=== PATIENT | male | born 1945 | race Caucasian/White ===

== ENCOUNTER 2023-01-22 16:25 | Inpatient (IN) ==
--- NOTE | 2023-01-22 16:35 | ED Triage Note ---
Date of Service January 22, 2023 History of Present Illness This patient was briefly evaluated while in triage. An abbreviated physical exam was performed. This patient is a 77-year-old Male who presents to the ED for evaluation of weakness and confusion. The patient was shopping at [employer] around 2 PM and lost his balance. reports that she was following him and he started to shuffle his feet. He then started to speed up and slow down again. When she put him in a car to take him home, he was fiddling with his seatbelt and his pockets. When asked what he was doing, he was stating "just drive". When he got home, he got out of the vehicle, started to stumble and slammed into the side of his pickup on his back. When he got into the house, there was urinary incontinence. Patient was just seen at noontime by his PCP for a sinus infection. Physical Exam CONSTITUTIONAL: Healthy and well nourished. Alert and oriented X 3. Patient is sitting in a wheelchair in triage HEENT: No scleral icterus or conjunctival injection/pallor. NECK: Full active range of motion without discomfort. LYMPHATICS: No cervical chain adenopathy. RESPIRATORY: Clear to auscultation bilaterally with no wheezing, crackles, rhonchi or stridor. CARDIOVASCULAR: Regular rate and rhythm with no murmurs, rubs or gallops. MUSCULOSKELETAL: Full range of motion of all joints without discomfort. INTEGUMENTARY: No rash or other significant dermatologic conditions noted. HEMATOLOGIC: No ecchymosis or petechiae. PSYCHIATRIC: Positive affect. NEUROLOGIC: No focal neurologic deficits noted. Initial orders for labs and / or imaging were placed and patient was placed in the waiting area until a bed is available. Please see further documentation for the full ED course.
--- NOTE | 2023-01-22 16:56 | Emergency Department Note ---
Impression & Plan Acute alteration in mental status, New onset left bundle branch block (LBBB), Elevated troponin I level ED Provider Note NAME: OXANA ENAMORADO AGE: 77 SEX: M : 1945 ARRIVES VIA: Walk-In INFORMANT: Patient, the patient's significant other ED PROVIDER(S): Milton Wells DO CHIEF COMPLAINT: Weakness HPI: The patient is a 77-year-old male who presented to the emergency department with his significant other for an evaluation of generalized weakness. The patient states that he was with his significant other shopping locally. His then starts to give part of the history and states that he appeared to be having some difficulty ambulating. He appeared to be very off balance. He was shuffling his gait. She then allowed him to start pushing the cart which allowed the patient to start to do better with walking. Then when they left the shopping area and got into the car the patient appeared to be having difficulty latching his seatbelt. The patient did not lose consciousness. He has no difficulty with speaking. He denies having any headache or chest pain. He has been dealing with an upper respiratory tract infection which he describes as a "sinus infection". He has been coughing. He just saw his family doctor for the symptoms. ROS: See above HPI for pertinent positives & negatives. A total of 10 systems reviewed and were otherwise negative. PAST MEDICAL HISTORY: See Below PAST SURGICAL HISTORY: See Below FAMILY HISTORY: See Below SOCIAL HISTORY: See Below HOME MEDICATIONS: See Below ALLERGIES: See Below VITALS: See Below PHYSICAL EXAMINATION: GENERAL: Patient is awake alert in no acute distress patient is resting comfortably and showing no signs of anxiety EYES: The conjunctivae are clear. The pupils are round and reactive. EARS, NOSE, MOUTH AND THROAT: The nose is without any evidence of any deformity. Mucous membranes are moist. Tongue is midline. NECK: The neck is nontender and supple. RESPIRATORY: Normal respiratory effort was noted. There were diminished breath sounds in the right lung field. Scattered rales are noted to the right lung field. There is no tachypnea or conversational dyspnea. CARDIOVASCULAR: Regular rate and rhythm noted there no murmurs rubs or gallops normal S1 normal S2. GASTROINTESTINAL: The abdomen is soft. Abdomen is nontender. MUSCULOSKELETAL/EXTREMITIES: There is no evidence of gross deformity full range of motion is noted in the hips and shoulders. SKIN: There is no obvious evidence of any rash. There is no significant pedal edema. Skin was warm and dry. NEUROLOGIC: Patient is awake alert and oriented x3. Speech was clear. There is no facial droop. Patient is able to hold each leg off the bed for greater than 5 seconds. There is no drift in the upper extremities. MEDICAL DECISION MAKING: The patient is a 77-year-old male who presented to the emergency department for an evaluation of altered mental status. The patient presented with his significant other. He had no focal neurologic deficits but he did appear to have some confusion at times especially pertaining to the episode earlier in the day. He also was found to have an EKG that showed a new left bundle branch block. Troponin was slightly elevated. I discussed the patient's laboratory and radiographic studies with him. He was treated with a baby aspirin in the emergency department. He was reevaluated multiple times. I discussed patient's condition with the on-call [facility]. They have agreed to evaluate the patient in the emergency department for further management and disposition Triage Nursing notes reviewed. Prior medical records reviewed Vital Signs: reviewed and remarkable for no significant abnormalities Differential diagnosis: Infection, dehydration, metabolic abnormality, hypo/hyperglycemia, electrolyte disturbance, anemia, hypoxia, cardiac sources, intracerebral event, toxicologic, neurologic, as well as other pathologies. ER treatment provided: See below Diagnostics interpreted by me: ECG: EKG was obtained in the emergency department. My interpretation is normal sinus rhythm at 95 bpm. A left bundle-branch block pattern was noted. There were no PVCs. Nonspecific ST segment abnormalities were noted. This was compared to a tracing from July 15, 2016. The left bundle branch block is new compared to the previous tracing. Cardiac Monitoring: An order was placed for continuous cardiac monitoring. The monitor shows a rate of 66 bpm with sinus bradycardia. Laboratory studies: As stated above and show below. Imaging studies: See below. Radiographic imaging was reviewed by myself Consultation(s): I discussed this case with Dr. Mcallister who is on-call for the [facility] group. 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 History of COVID-19 2020- FEVER, SORE THROAT, NO HOSPITALIZATION, NO CURRENT ISSUES Hx of dislocation of hip X 2 --LEFT Hx of steroid therapy recent hx of steroid injections thumb, knees, and back Hyperlipidemia Hypertension Surgical History H/O nasal septoplasty History of bunionectomy X 4 History of hip surgery LEFT, AFTER 2 HIP DISLOCATIONS, HAD TO BE "LOCKED" INTO PLACE Hx of colonoscopy S/P total hip arthroplasty B/L Social History Smoking Status: Former smoker Second Hand Exposure: Yes; Do You Dip or Chew Tobacco: No; Tobacco Cessation Education Requested by Patient: No Hx Alcohol Use: No Hx Substance Use: No Preferred Language: Khmer Communication Ability: Effective Knot Borer Required: No Beliefs That Will Affect Care: None Current Living Situation: Spouse Other Information That Helps Us Care for You: Yes (previously received steroid injections) Feels Safe at Home: Yes Safety Concerns: Feels Safe At This Time Assistive Devices: Cane, Hearing Aid - Bilateral, Hearing Aid - Left, Hearing Aid - Right and Walker Allergies Allergies Allergy/AdvReac Type Severity Reaction Status Date / Time No Known Allergies Allergy Unknown Verified 01/22/23 21:23 Home Meds Home Medications Medication Instructions Recorded Confirmed atorvastatin 20 mg tablet 20 mg PO QPM 04/06/21 01/22/23 amoxicillin 500 mg capsule 500 mg PO UD 09/02/22 01/22/23 multivitamin 1 tab PO QAM 09/02/22 01/22/23 doxycycline hyclate 100 mg capsule 100 mg PO BID 01/22/23 01/22/23 fluticasone propionate 50 2 spray intranasal DAILY 01/22/23 01/22/23 mcg/actuation nasal spray,suspension (Flonase Allergy Relief) hydrochlorothiazide 25 mg tablet 25 mg PO DAILY 01/22/23 01/22/23 potassium gluconate 595 mg (99 mg) 595 mg PO DAILY 01/22/23 01/22/23 tablet prednisone 20 mg tablet 40 mg PO DAILY 01/22/23 01/22/23 trazodone 150 mg tablet 150 mg PO HS 01/22/23 01/22/23 triamcinolone acetonide 0.1 % 1 applic topical BID PRN flare ups 01/22/2301/22 lotion Results & Data (ED) Vital Signs Vital Signs - 24 hr 01/22/23 16:28 01/22/23 16:56 01/22/23 16:56 Temperature 36.6 C Temperature Source Temporal Artery Scan Pulse Rate 97 H 90 Pulse Rate [Right Apical] 90 Pulse Rate from SpO2 Sensor Respiratory Rate 20 18 18 Respiratory Effort / Characteristics Non-Labored Non-Labored Spontaneous Respiratory Depth Normal Normal Respiratory Pattern Regular Blood Pressure 145/62 H Blood Pressure [Right Arm] 143/65 H Blood Pressure Mean 89 Blood Pressure Mean [Right Arm] 91 Pulse Oximetry 92 92 92 Oxygen Delivery Method Room Air Room Air Room Air Sepsis Recent Fever Within 48 Hours No Sepsis New/Unexplained Change in Mental Status N/A Sepsis Action Taken by Nursing No Action Required 01/22/23 17:08 01/22/23 17:30 01/22/23 18:37 Temperature Temperature Source Pulse Rate 87 82 77 Pulse Rate [Right Apical] Pulse Rate from SpO2 Sensor 82 Respiratory Rate 26 H 16 Respiratory Effort / Characteristics Respiratory Depth Respiratory Pattern Blood Pressure 131/59 L 120/57 L Blood Pressure [Right Arm] Blood Pressure Mean 83 78 Blood Pressure Mean [Right Arm] Pulse Oximetry 91 94 Oxygen Delivery Method Room Air Room Air Sepsis Recent Fever Within 48 Hours Sepsis New/Unexplained Change in Mental Status Sepsis Action Taken by Longterm Medications Current Medication List: was personally reviewed by me Laboratory Data Attestation: I reviewed the patient's lab results. 01/22/23 16:41 01/22/23 16:41 Lab Results 01/22/23 01/22/23 01/22/23 Range/Units 16:41 16:41 16:41 WBC 9.44 (4.8-10.8) K/ul RBC 4.40 L (4.70-6.10) M/uL Hgb 13.5 L (14.0-18.0) g/dl Hct 38.4 L (42.0-52.0) % MCV 87.3 (80.0-100.0) fL MCH 30.7 (25.0-34.0) pg MCHC 35.2 (32.0-36.0) g/dL RDW Std Deviation 39.6 (36.4-46.3) fL RDW Coeff of Thomas 12.3 (11.5-14.5) % Plt Count 217 (130-400) K/uL MPV 8.8 L (9.4-12.4) fL Immature Gran % (Auto) 0.3 % Neut % (Auto) 86.4 % Lymph % (Auto) 3.6 % [place] % (Auto) 9.5 % Eos % (Auto) 0.1 % Baso % (Auto) 0.1 % Neut # (Auto) 8.15 H (1.40-6.50) K/uL Lymph # (Auto) 0.34 L (1.2-3.4) K/uL [place] # (Auto) 0.90 H (0.11-0.59) K/uL Eos # (Auto) 0.01 (0-0.50) K/uL Baso # (Auto) 0.01 (0-0.2) K/uL Immature Gran # (Auto) 0.03 (0.01-0.20) K/uL Sodium 133 L (136-145) mmol/L Potassium 3.4 L (3.5-5.1) mmol/L Chloride 99 (98-107) mmol/L Carbon Dioxide 26 (21-32) mmol/L Anion Gap 8 (3-11) BUN 21 (6-23) mg/dl Creatinine 0.75 (0.6-1.4) mg/dl Est Cr Clr Drug Dosing 93.4 ml/min Est GFR ( Amer) 104.0 ml/min Est GFR (Non-Af Amer) 89.7 ml/min BUN/Creatinine Ratio 28.0 H (10-20) Glucose 92 (70-99(Fasting)) mg/dl Calcium 9.2 (8.6-10.3) mg/dl Total Bilirubin 1.1 H (0.2-1.0) mg/dl AST 26 (13-39) U/L ALT 20 (7-52) U/L Alkaline Phosphatase 66 (34-104) U/L Troponin I High Sens 20.8 H (0-20) pg/ml Total Protein 7.3 (6.0-8.3) gm/dl Albumin 4.5 (3.4-5.0) gm/dl Globulin 2.8 (2.5-4.0) gm/dl Albumin/Globulin Ratio 1.6 (0.9-2) TSH 1.812 (0.300-4.500) uIu/ml Urine Color Urine Appearance (Clear) Urine pH (4.5-7.5) Ur Specific [place] (1.000-1.030) Urine Protein (Negative) Urine Glucose (UA) (Negative) Urine Ketones (Negative) Urine Blood (Negative) Urine Nitrite (Negative) Urine Bilirubin (Negative) Urine Urobilinogen (Negative) Ur Leukocyte Esterase (Negative) Urine WBC (Auto) (0-5) /hpf Urine RBC (Auto) (0-4) /hpf U Hyaline Cast (Auto) (0-5) /lpf U Epithel Cells (Auto) (0-5) /lpf Urine Bacteria (Auto) (Negative) Urine Opiates Screen (Neg) Ur Methadone, Qual (Neg) Urine Barbiturates (Neg) Ur Phencyclidine (PCP) (Neg) U Amphetamin/Meth Scrn (Neg) MDMA (Ecstasy) Screen (Neg) U Benzodiazepines Scrn (Neg) Ur Cocaine Metabolite (Neg) U Marijuana (THC) Screen (Neg) Ethyl Alcohol mg/dL (<10.0) mg/dl SARS-CoV-2 (PCR) (Negative) Influenza Type A (PCR) (Neg) Influenza Type B (PCR) (Neg) RSV (RT-PCR) (Neg) 01/22/23 01/22/23 01/22/23 Range/Units 16:41 17:15 18:37 WBC (4.8-10.8) K/ul RBC (4.70-6.10) M/uL Hgb (14.0-18.0) g/dl Hct (42.0-52.0) % MCV (80.0-100.0) fL MCH (25.0-34.0) pg MCHC (32.0-36.0) g/dL RDW Std Deviation (36.4-46.3) fL RDW Coeff of Thomas (11.5-14.5) % Plt Count (130-400) K/uL MPV (9.4-12.4) fL Immature Gran % (Auto) % Neut % (Auto) % Lymph % (Auto) % [place] % (Auto) % Eos % (Auto) % Baso % (Auto) % Neut # (Auto) (1.40-6.50) K/uL Lymph # (Auto) (1.2-3.4) K/uL [place] # (Auto) (0.11-0.59) K/uL Eos # (Auto) (0-0.50) K/uL Baso # (Auto) (0-0.2) K/uL Immature Gran # (Auto) (0.01-0.20) K/uL Sodium (136-145) mmol/L Potassium (3.5-5.1) mmol/L Chloride (98-107) mmol/L Carbon Dioxide (21-32) mmol/L Anion Gap (3-11) BUN (6-23) mg/dl Creatinine (0.6-1.4) mg/dl Est Cr Clr Drug Dosing ml/min Est GFR ( Amer) ml/min Est GFR (Non-Af Amer) ml/min BUN/Creatinine Ratio (10-20) Glucose (70-99(Fasting)) mg/dl Calcium (8.6-10.3) mg/dl Total Bilirubin (0.2-1.0) mg/dl AST (13-39) U/L ALT (7-52) U/L Alkaline Phosphatase (34-104) U/L Troponin I High Sens (0-20) pg/ml Total Protein (6.0-8.3) gm/dl Albumin (3.4-5.0) gm/dl Globulin (2.5-4.0) gm/dl Albumin/Globulin Ratio (0.9-2) TSH (0.300-4.500) uIu/ml Urine Color Yellow Urine Appearance Clear (Clear) Urine pH 5.0 (4.5-7.5) Ur Specific [place] 1.017 (1.000-1.030) Urine Protein Negative (Negative) Urine Glucose (UA) Negative (Negative) Urine Ketones 1+ H (Negative) Urine Blood 1+ H (Negative) Urine Nitrite Negative (Negative) Urine Bilirubin Negative (Negative) Urine Urobilinogen Negative (Negative) Ur Leukocyte Esterase Negative (Negative) Urine WBC (Auto) 1-5 (0-5) /hpf Urine RBC (Auto) 5-10 H (0-4) /hpf U Hyaline Cast (Auto) 1-5 (0-5) /lpf U Epithel Cells (Auto) 0-5 (0-5) /lpf Urine Bacteria (Auto) Negative (Negative) Urine Opiates Screen (Neg) Ur Methadone, Qual (Neg) Urine Barbiturates (Neg) Ur Phencyclidine (PCP) (Neg) U Amphetamin/Meth Scrn (Neg) MDMA (Ecstasy) Screen (Neg) U Benzodiazepines Scrn (Neg) Ur Cocaine Metabolite (Neg) U Marijuana (THC) Screen (Neg) Ethyl Alcohol mg/dL 10.7 H (<10.0) mg/dl SARS-CoV-2 (PCR) NEGATIVE (Negative) Influenza Type A (PCR) Negative (Neg) Influenza Type B (PCR) Negative (Neg) RSV (RT-PCR) Negative (Neg) 01/22/23 Range/Units 18:37 WBC (4.8-10.8) K/ul RBC (4.70-6.10) M/uL Hgb (14.0-18.0) g/dl Hct (42.0-52.0) % MCV (80.0-100.0) fL MCH (25.0-34.0) pg MCHC (32.0-36.0) g/dL RDW Std Deviation (36.4-46.3) fL RDW Coeff of Thomas (11.5-14.5) % Plt Count (130-400) K/uL MPV (9.4-12.4) fL Immature Gran % (Auto) % Neut % (Auto) % Lymph % (Auto) % [place] % (Auto) % Eos % (Auto) % Baso % (Auto) % Neut # (Auto) (1.40-6.50) K/uL Lymph # (Auto) (1.2-3.4) K/uL [place] # (Auto) (0.11-0.59) K/uL Eos # (Auto) (0-0.50) K/uL Baso # (Auto) (0-0.2) K/uL Immature Gran # (Auto) (0.01-0.20) K/uL Sodium (136-145) mmol/L Potassium (3.5-5.1) mmol/L Chloride (98-107) mmol/L Carbon Dioxide (21-32) mmol/L Anion Gap (3-11) BUN (6-23) mg/dl Creatinine (0.6-1.4) mg/dl Est Cr Clr Drug Dosing ml/min Est GFR ( Amer) ml/min Est GFR (Non-Af Amer) ml/min BUN/Creatinine Ratio (10-20) Glucose (70-99(Fasting)) mg/dl Calcium (8.6-10.3) mg/dl Total Bilirubin (0.2-1.0) mg/dl AST (13-39) U/L ALT (7-52) U/L Alkaline Phosphatase (34-104) U/L Troponin I High Sens (0-20) pg/ml Total Protein (6.0-8.3) gm/dl Albumin (3.4-5.0) gm/dl Globulin (2.5-4.0) gm/dl Albumin/Globulin Ratio (0.9-2) TSH (0.300-4.500) uIu/ml Urine Color Urine Appearance (Clear) Urine pH (4.5-7.5) Ur Specific [place] (1.000-1.030) Urine Protein (Negative) Urine Glucose (UA) (Negative) Urine Ketones (Negative) Urine Blood (Negative) Urine Nitrite (Negative) Urine Bilirubin (Negative) Urine Urobilinogen (Negative) Ur Leukocyte Esterase (Negative) Urine WBC (Auto) (0-5) /hpf Urine RBC (Auto) (0-4) /hpf U Hyaline Cast (Auto) (0-5) /lpf U Epithel Cells (Auto) (0-5) /lpf Urine Bacteria (Auto) (Negative) Urine Opiates Screen Neg (Neg) Ur Methadone, Qual Neg (Neg) Urine Barbiturates Neg (Neg) Ur Phencyclidine (PCP) Neg (Neg) U Amphetamin/Meth Scrn Neg (Neg) MDMA (Ecstasy) Screen Pos H (Neg) U Benzodiazepines Scrn Neg (Neg) Ur Cocaine Metabolite Neg (Neg) U Marijuana (THC) Screen Neg (Neg) Ethyl Alcohol mg/dL (<10.0) mg/dl SARS-CoV-2 (PCR) (Negative) Influenza Type A (PCR) (Neg) Influenza Type B (PCR) (Neg) RSV (RT-PCR) (Neg) Administered Medications Discontinued Medications Aspirin (Aspirin Chew 324 Mg) 324 mg PO NOW STA Stop: 01/22/23 19:17 Last Admin: 01/22/23 19:48 Dose: 324 mg Documented By: [facility] Gadobutrol (Gadobutrol 65ml Vial) 9.1 ml IV ONCE ONE Stop: 01/22/23 22:55 Last Admin: 01/22/23 22:54 Dose: 9.1 ml Documented By: KRYSTAL Ioversol (Optiray 320 500ml) 120 ml IV ONCE ONE Stop: 01/22/23 20:43 Last Admin: 01/22/23 20:42 Dose: 120 ml Documented By: EDK Imaging Data Attestation: I personally reviewed and interpreted this imaging study as follows: My Impression: 1 view chest x-ray was obtained in the emergency department. My interpretation is no definite infiltrate, no free air, final report below. Radiologist's Impression: Chest X-Ray 01/22/23 16:35 XR chest 1V portable CLINICAL HISTORY: weakness TECHNIQUE: Single frontal radiograph of the chest was obtained. Comparison: Comparison is made to chest radiograph 11/26/2013 FINDINGS: No lines and tubes are seen. Cardiomegaly is noted. The aortic arch is calcified. The lungs are clear. No evidence of pleural effusion or pneumothorax. IMPRESSION: No acute chest disease. ACT 112: Negative or not required by law. Electronically signed by: Jordan Johnston M.D. 01/22/2023 5:[address] 01/22/23 16:35 CT head/brain wo con CLINICAL HISTORY: AMS Technique: Contiguous axial CT images of the head were acquired from the base of the skull to the vertex without intravenous contrast administration. Images were viewed in brain, subdural and bone windows. Automated dose lowering techniques and/or adjustment according to patient size were utilized for this exam. Comparison: None available at the time of this dictation. Findings: The ventricles, basal cisterns, and cerebral sulci are normal. There is no acute intracranial hemorrhage or evidence of acute territorial infarction. Neither mass effect, shift of the midline structures, nor abnormal extra-axial fluid co llections are shown. Incidental note is made of cavum septum pellucidum. Sinus disease is partially seen throughout the paranasal sinuses. The orbits appear normal. There are no acute fractures of the calvaria or scalp swelling. Impression: No acute intracranial hemorrhage, no evidence of acute territorial infarction or other acute intracranial disease process. Sinus disease is seen. ACT 112: Negative or not required by law. Electronically signed by: Jordan Johnston M.D. 01/22/2023 6:15 PM Discharge Plan Visit Data Chief Complaint: Neuro Symptoms/Deficit Stated Complaint: CONFUSION,LOST BALANCE,WET HIMSELF ED Provider: Milton Wells Discharge Problem: Acute alteration in mental status, New onset left bundle branch block (LBBB), Elevated troponin I level Patient Disposition: Admitted As Inpatient Discharge Instructions Interventions: ED Discharge Assessment Last Done: 01/22/23 21:21
[2023-01-22 17:18] LABS: Basophils # (auto) 0.01 K/uL (0-0.2); Basophils % (auto) 0.1 %; Eosinophils # (auto) 0.01 K/uL (0-0.50); Eosinophils % (auto) 0.1 %; Hematocrit (blood only) 38.4 % (42.0-52.0); Hemoglobin 13.5 g/dl (14.0-18.0); Immature Granulocytes # (auto) 0.03 K/uL (0.01-0.20); Immature Granulocytes % (auto) 0.3 %; Lymphocytes # (auto) 0.34 K/uL (1.2-3.4); Lymphocytes % (auto) 3.6 %; Mean Corpuscular Hemoglobin 30.7 pg (25.0-34.0); Mean Corpuscular Hgb Conc 35.2 g/dL (32.0-36.0); Mean Corpuscular Volume 87.3 fL (80.0-100.0); Mean Platelet Volume 8.8 fL (9.4-12.4); Monocytes % (auto) 9.5 %; Neutrophils # (auto) 8.15 K/uL (1.40-6.50); Neutrophils % (auto) 86.4 %; Platelet Count 217 K/uL (130-400); RDW Coefficient of Variation 12.3 % (11.5-14.5); RDW Standard Deviation 39.6 fL (36.4-46.3); White Blood Count 9.44 K/ul (4.8-10.8)
--- NOTE | 2023-01-22 17:24 | XRay Report ---
XR chest 1V portable CLINICAL HISTORY: weakness TECHNIQUE: Single frontal radiograph of the chest was obtained. Comparison: Comparison is made to chest radiograph 11/26/2013 FINDINGS: No lines and tubes are seen. Cardiomegaly is noted. The aortic arch is calcified. The lungs are clear . No evidence of pleural effusion or pneumothorax. IMPRESSION: No acute chest disease. ACT 112: Negative or not required by law. Electronically signed by: Jordan Johnston M.D. 01/22/2023 5:23 PM
[2023-01-22 17:30] LABS: Albumin Globulin Ratio 1.6 (0.9-2); Albumin Level 4.5 gm/dl (3.4-5.0); Bilirubin,Total 1.1 mg/dl (0.2-1.0); Calcium 9.2 mg/dl (8.6-10.3); Creatinine Clr Calc Pharmacy 93.4 ml/min; Est GFR (Non-African American) 89.7 ml/min; Globulin 2.8 gm/dl (2.5-4.0); Potassium 3.4 mmol/L (3.5-5.1); Total Protein 7.3 gm/dl (6.0-8.3)
[2023-01-22 18:03] LABS: Influenza A virus by PCR Negative (Neg); Influenza B virus by PCR Negative (Neg); RSV by PCR Negative (Neg); SARS CoV2 RNA(COVID-19) Ceph NEGATIVE (Negative)
[2023-01-22 18:17] LABS: Troponin I High Sensitivity 20.8 pg/ml (0-20)
--- NOTE | 2023-01-22 18:17 | CT Scan Report ---
CT head/brain wo con CLINICAL HISTORY: AMS Technique: Contiguous axial CT images of the head were acquired from the base of the skull to the evie stewart without intravenous contrast administration. Images were viewed in brain, subdural and bone [facility]. Automated dose lowering techniques and/or adjustment according to patient size were utilized for this exam. Comparison: None available at the time of this dictation. Findings: The ventricles, basal cisterns, and cerebral sulci are normal. There is no acute intracranial hemorrh age or evidence of acute territorial infarction. Neither mass effect, shift of the midline structures , nor abnormal extra-axial fluid collections are shown. Incidental note is made of cavum septum rome ucidum. Sinus disease is partially seen throughout the paranasal sinuses. The orbits appear normal. There ar e no acute fractures of the calvaria or scalp swelling. Impression: No acute intracranial hemorrhage, no evidence of acute territorial infarction or other acute intracra nial disease process. Sinus disease is seen. ACT 112: Negative or not required by law. Electronically signed by: Jordan Johnston M.D. 01/22/2023 6:15 PM
[2023-01-22 18:52] LABS: Appearance Urine Clear (Clear); Bacteria Urine Automated Negative (Negative); Bilirubin Urine Negative (Negative); Blood Urine 1+ (Negative); Color Urine Yellow; Epithelial Cell Urine Auto 0-5 /lpf (0-5); Glucose Urine UA Negative (Negative); Ketones Urine 1+ (Negative); Leukocyte Esterase Urine Negative (Negative); Nitrite Urine Negative (Negative); Protein Urine Negative (Negative); Specific Gravity Urine 1.017 (1.000-1.030); Urobilinogen Urine Negative (Negative)
[2023-01-22] MEDS ORDERED: ASPIRIN CHEW 324 MG PO STA (19:16)
[2023-01-22 19:20] LABS: Amphetamines+Metham, Urine Neg (Neg); Barbiturates, Urine Neg (Neg); Benzodiazepine, Urine Neg (Neg); Cocaine, Urine Neg (Neg); MDMA (Ecstacy), Urine Pos (Neg); Methadone, Urine Neg (Neg); Opiate, Urine Neg (Neg); Phencyclidine, Urine Neg (Neg)
[2023-01-22] MEDS ORDERED: OPTIRAY 320 500ml IV ONE (20:42)
--- NOTE | 2023-01-22 21:27 | CT Scan Report ---
CT angio neck with con, CT angio head w con CLINICAL HISTORY: stroke like symptoms TECHNIQUE: CT angiography of the head and neck was performed following intravenous administration of iodinated contrast. Coronal and sagittal MIPS were obtained from the axial data set and were submitt ed for review. Automated dose lowering techniques and/or adjustment according to patient size were u tilized for this examination. All measurements were calculated based on NASCET criteria. CT DOSE: 533.89 mGy.cm Comparison: Comparison is made to CT head 01/22/2023 FINDINGS: Lungs and soft tissues are unremarkable. CTA Neck: A 3 vessel aortic arch is shown. There is no significant atherosclerotic plaque in the aor tic arch or the origins of the innominate, left common carotid, and left subclavian arteries. The co mmon carotid, external carotid, cervical segments of the internal carotid arteries, and the cervical segments of the vertebral arteries are patent without hemodynamically significant stenosis. The left vertebral artery is dominant. CTA Head: The anterior and posterior cerebral circulations are patent. origin of the bilateral posterior cerebral arteries noted. Bilateral extensive sinus disease is noted. IMPRESSION: 1. No occlusion, hemodynamically significant stenosis, or dissection in the major cervical arteries. 2. No occlusion, hemodynamically significant stenosis, aneurysm, dissection, or arteriovenous malfor mation in the major intracranial arteries. 3. Sinus disease. Assessment of stenosis of the internal carotid arteries is based on NASCET criteria. ACT 112: Negative or not required by law. Electronically signed by: Jordan Johnston M.D. 01/22/2023 9:24 PM
[2023-01-22] MEDS ORDERED: ATORVASTATIN 20 MG TAB PO SCH (21:59)
[2023-01-22] MEDS ORDERED: NITROGLYCERIN SL 0.4 MG/TAB TAB SL PRN (21:59)
[2023-01-22] MEDS ORDERED: POLYETHYLENE (MIRALAX) 17 GM PACK PO PRN (21:59)
[2023-01-22] MEDS ORDERED: ACETAMINOPHEN 325 MG TAB PO PRN (21:59)
[2023-01-22] MEDS ORDERED: PHARMACIST DISCHARGE MED REC CONSULT PRN (21:59)
--- NOTE | 2023-01-22 22:41 | History and Physical Report ---
DATE OF ADMISSION: 01/22/2023. CHIEF COMPLAINT: Imbalance and confusion. HISTORY OF PRESENT ILLNESS: A 77-year-old male with past medical history significant for hyperlipidemia, deviated nasal septum, hypertension, history of BPH, sacroiliitis, status post nasal surgery, history of COVID, presents with imbalance and confusion. Around 1 o'clock and 2 p.m. today the patient with went to [facility]. When they walked in, the noticed that he is limping more than his usual. He has hip surgeries and he generally has some gait issues, but it was more than his usual, and when they got in the car, he seemed to be somewhat confused, could not put his seatbelt on and when they got out of car, he seemed to lose balance and fall back onto the car and also noticed that he was incontinent of urine when they went to the house. The patient says he has frequent micturition going on for some time and he felt that he could not wait until he goes to bathroom .. Speech is okay. thinks his confusion is mostly resolved, but he still has some gait issues. The patient is resting comfortably, hemodynamically stable. Speech is clear, could give his history: He was also having ongoing sinus issues. He had nasal surgery about a year ago and has chronic sinus issues. Since few weeks he is having nasal discharge and with cough and saw the family doctor today and was prescribed prednisone and doxycycline, took doxycycline, but not took the prednisone yet. Denies any headache. He has chronic neck pain, chronic back pain. Denies any chest pain. He has chronic knee pains. He says he is supposed to get a shot to his back .. Appetite is okay. Denies any chest pain, no shortness of breath, no nausea, no abdominal pain. Normal bowel movements. No blood in the stool or black stools. No hematuria, no burning micturitions. No fevers. He does night shifts and sleeps in the afternoon and takes trazodone prior to going to sleep. He says never took alcohol, but his alcohol level was slightly high in the ER. ALLERGIES: No known drug allergies. PAST MEDICAL HISTORY: As mentioned above. PAST SURGICAL HISTORY: Right foot bunion surgery, colonoscopy with biopsy, dental surgery, bilateral knee arthroscopy, left hip reconstructive surgery of dislocation, submucosal resection of inferior turbinate, bilateral; right eye cataract surgery, right inguinal hernia repair, bilateral hip replacements, vasectomy. MEDICATIONS: The patient is on amoxicillin prior to dental procedures, atorvastatin 20 mg daily, doxycycline 100 mg p.o. daily for 14 days starting today, hydrochlorothiazide 25 mg p.o. daily, multivitamin 1 tablet p.o. daily, prednisone 40 mg daily for 5 days, trazodone 150 mg p.o. at bedtime, potassium gluconate 595 mg p.o. daily. FAMILY HISTORY: Significant for father had cancer, mother had CHF. SOCIAL HISTORY: Smoked 1/2 pack a day for one year, quit in 1967. Denies any alcohol use. Denies any drug use. REVIEW OF SYSTEMS: As per HPI. Rest of review of systems is negative. PHYSICAL EXAMINATION: GENERAL: The patient is of moderate build, not in acute distress. VITAL SIGNS: Temperature 36.6, pulse 77, respiratory rate 16, blood pressure 120/57, oxygen 94% on room air. HEENT: Pupils equal, round and reactive to light. Extraocular muscles intact. Oral mucosa moist. NECK: No JVD. No neck masses. CARDIOVASCULAR: S1 and S2 heard. Regular rate and rhythm. No murmur, no gallop. RESPIRATORY SYSTEM: Normal AP diameter. No accessory muscle use. No wheezing or crackles. ABDOMEN: Soft, bowel sounds present, nontender, no distention. CENTRAL NERVOUS SYSTEM: Alert and oriented. Speech is clear. No facial droop. Tongue is midline. Can close his eyes tight and raise his brows. Power 5/5 in upper extremities, 4-5/5 in lower extremities. Can lift his lower extremity and hold. No pronator drift. Coordination of movements normal. Sensation is intact. Position sense intact. EXTREMITIES: No edema, no erythema. LABORATORY DATA: WBC is 9.4, hemoglobin 13.5, hematocrit 38.4, platelets 217. Sodium 133, potassium 3.4, chloride 99, CO2 of 26, BUN 21, creatinine 0.7, serum glucose 92, calcium 9.2, total bilirubin 1.1, AST 26, ALT 20, alkaline phosphatase 60. Troponin I high sensitivity 20.8. TSH 1.8. Urinalysis, +1 ketones, +1 blood, bacteria negative. Urine drug screen positive for MDMA screen, ethyl alcohol 10.7. SARS-CoV-2 PCR negative. Influenza A and B PCR negative. RSV PCR negative. DIAGNOSTIC DATA: CT of the head, no acute findings. Chest x-ray, no acute disease. EKG: Normal sinus rhythm at a rate 95. Nonspecific intraventricular conduction delay, nonspecific ST abnormalities. QTc of 490. ASSESSMENT AND PLAN: This is a 77-year-old male presents with confusion and imbalance. 1. Confusion and imbalance. Confusion has improved. The patient's drug screen is positive for MDMA screen, awaiting confirmation.. Denies any drug use. Denies any alcohol use. Initial workup, CT of the head is okay.Received aspirin. We will do a full stroke workup with CTA of the head and neck, MRI scan, echo, and consult neurology in the a.m. PT/OT. Monitor in the tele floor. 2. Abnormal EKG. Follow echocardiogram. Mild elevation of troponin most likely demand ischemia. Follow serial enzymes, echocardiogram. Consult cardiology in the a.m. for further recommendations. 3. History of hyperlipidemia. On statin. Follow lipid profile as per stroke protocol. 4. History of hypertension. Continue hydrochlorothiazide. We will monitor the blood pressure. 5. Sinus disease. Saw PCP today and prescribed doxycycline and prednisone. We will continue doxycycline, hold prednisone for now. 6. Deep venous thrombosis prophylaxis. SCDs for now. DISPOSITION: Admit to tele floor. PT/OT. Social service to help with discharge planning. Level 1 full code. Job ID: [id number] MTDD
[2023-01-22] MEDS ORDERED: GADOBUTROL 65ML VIAL IV ONE (22:54)
[2023-01-22] MEDS: SODIUM CHLORIDE 0.9% 1000ML 1,000 ML IV SCH (23:25)
[2023-01-22] MEDS: DOXYCYCLINE HYCLATE 100 MG CAP PO SCH (23:26)
--- NOTE | 2023-01-22 23:28 | Magnetic Resonance Report ---
MR brain wo/w con CLINICAL HISTORY: stroke like symptoms TECHNIQUE: Multiplanar and multisequence MR images of the brain were obtained prior to and following administration of gadolinium contrast. Comparison: Comparison is made to CTA head and neck 01/22/2023 FINDINGS: Exam is limited by motion artifact. Incidental note is made of cavum septum pellucidum. No abnormal r estricted diffusion is identified. Foci of T2 and FLAIR hyperintensity are noted in the paraventricul ar areas consistent with chronic small vessel ischemic disease. Ex vacuo ventriculomegaly and sulcal enlargement is noted compatible with diffuse encephalomalacia. No mass or abnormal enhancement is see n. There is no mass effect or midline shift. There is no evidence of acute intraparenchymal hemorrhag e. No extra axial fluid collections are seen. The corpus callosum, pituitary gland, and cerebellar to nsils appear grossly unremarkable. Flow voids of the major intracranial arterial vessels are identified. Prominent sinus disease. IMPRESSION: No acute abnormalities. ACT 112: Negative or not required by law. Electronically signed by: Jordan Johnston M.D. 01/22/2023 11:27 PM
[2023-01-23 05:06] LABS: Basophils # (auto) 0.02 K/uL (0-0.2); Basophils % (auto) 0.2 %; Eosinophils # (auto) 0.03 K/uL (0-0.50); Eosinophils % (auto) 0.3 %; Hematocrit (blood only) 35.7 % (42.0-52.0); Hemoglobin 12.3 g/dl (14.0-18.0); Immature Granulocytes # (auto) 0.03 K/uL (0.01-0.20); Immature Granulocytes % (auto) 0.3 %; Lymphocytes # (auto) 0.75 K/uL (1.2-3.4); Lymphocytes % (auto) 7.4 %; Mean Corpuscular Hemoglobin 30.4 pg (25.0-34.0); Mean Corpuscular Hgb Conc 34.5 g/dL (32.0-36.0); Mean Corpuscular Volume 88.4 fL (80.0-100.0); Mean Platelet Volume 8.7 fL (9.4-12.4); Monocytes # (auto) 1.14 K/uL (0.11-0.59); Monocytes % (auto) 11.3 %; Neutrophils # (auto) 8.12 K/uL (1.40-6.50); Neutrophils % (auto) 80.5 %; Platelet Count 196 K/uL (130-400); RDW Coefficient of Variation 12.5 % (11.5-14.5); RDW Standard Deviation 41.1 fL (36.4-46.3); Red Blood Count 4.04 M/uL (4.70-6.10); White Blood Count 10.09 K/ul (4.8-10.8)
[2023-01-23 05:21] LABS: BUN Creatinine Ratio 23.8 (10-20); Calcium 8.6 mg/dl (8.6-10.3); Chol HDL Ratio 2.7 (0-5); Creatinine Clr Calc Pharmacy 111.2 ml/min; Est GFR (African American) 111.7 ml/min; Est GFR (Non-African American) 96.4 ml/min; Potassium 3.5 mmol/L (3.5-5.1)
--- NOTE | 2023-01-23 08:26 | Electrocardiogram Report ---
Test Reason : Blood Pressure : / mmHG Vent. Rate : 059 BPM Atrial Rate : 059 BPM P-R Int : 202 ms QRS Dur : 122 ms QT Int : 458 ms P-R-T Axes : 047 -43 081 degrees QTc Int : 453 ms Sinus bradycardia Left axis deviation Left ventricular hypertrophy with QRS widening and repolarization abnormality Abnormal ECG When compared with ECG of 22-JAN-2023 16:39, Vent. rate has decreased BY 36 BPM Confirmed by Francisco Javier Olivia ([id number]) on 01/23/2023 8:26:23 AM Referred By: REFERRED SELF Confirmed By:Francisco Javier Olivia
--- NOTE | 2023-01-23 08:29 | Electrocardiogram Report ---
Test Reason : Blood Pressure : / mmHG Vent. Rate : 095 BPM Atrial Rate : 095 BPM P-R Int : 188 ms QRS Dur : 124 ms QT Int : 390 ms P-R-T Axes : 061 -23 104 degrees QTc Int : 490 ms Normal sinus rhythm Left ventricular hypertrophy with QRS widening and repolarization abnormality Abnormal ECG When compared with ECG of 15-JUL-2016 10:20, Vent. rate has increased BY 41 BPM QRS duration has increased Confirmed by Francisco Javier Olivia ([id number]) on 01/23/2023 8:29:32 AM Referred By: REFERRED SELF Confirmed By:Francisco Javier Olivia
[2023-01-23] MEDS ORDERED: ASPIRIN 81 MG ECTAB PO SCH (09:00)
[2023-01-23] MEDS ORDERED: MULTIVITAMIN TAB PO SCH (09:00)
[2023-01-23] MEDS ORDERED: hydroCHLOROthiazide 25 MG TAB PO SCH (09:00)
[2023-01-23] MEDS ORDERED: DOXYCYCLINE HYCLATE 100 MG CAP PO SCH (09:00)
[2023-01-23] MEDS: DOXYCYCLINE HYCLATE 100 MG CAP PO SCH (09:27)
[2023-01-23] MEDS: SODIUM CHLORIDE 0.9% 1000ML 1,000 ML IV SCH (09:33)
[2023-01-23 10:21] LABS: Estimated Average Glucose 105 mg/dl; Hemoglobin A1C 5.3 % (4.5-5.6)
--- NOTE | 2023-01-23 10:33 | Hospitalist Progress Note ---
Date of Service January 23, 2023 Assessment & Plan (1) Acute metabolic encephalopathy: Plan: 2/2 untreated UTI in the setting of an ongoing sinus infection. Resolved with abx. Cont with cefdinir to broadly cover both sources (sinus and urine) as there are no culture results to guide therapy. Patient had taken one dose of the doxycycline prior to arriving at the hospital, which is likely the reason there was no bacteria in the urine. No evidence of stroke clinically and brain MRI was negative. No other clear cause for confusion other than infection. (2) UTI (urinary tract infection): Plan: Improving. Patient reports that dysuria has resolved. Also wtih urinary frequency increase. Afebrile overnight and he is hemodynamically stable. (3) Asymptomatic microscopic hematuria: Plan: Likely related to UTI above. Recommend repeat UA after antibiotic therapy to ensure resolution. Explained this to and daughter as well as patient who all verbalized understanding with intent to comply. (4) Sinus infection: Plan: chronic issue with recent symptoms. Reports he is still blowing out greenish mucous. Change doxy to cefdinir and followup with PCP. (5) Elevated troponin I level: Plan: Trop was 20.8-->21-->15. Patient was seen by cardiology this admission who reviewed his echocardiogram, which was normal. His EKG reveals sinus rhythm with left axis deviation. No additional cardiac workup was recommended. (6) DJD (degenerative joint disease) of hip: Plan: Chronic pain and causes abnormal gait 2/2 compensation. This likely added to his gait instability noted by and daughter yesterday (7) Dislocation of hip prosthesis: Plan: Chronic pain and causes abnormal gait 2/2 compensation. This likely added to his gait instability noted by and daughter yesterday (8) History of amputation of toe: Plan: Chronic pain and causes abnormal gait 2/2 compensation. This likely added to his gait instability noted by and daughter yesterday (9) Hypertension: Plan: Chronic, at goal. Cont home HCTZ (10) Hyperlipidemia: Plan: Chronic, stable. Cont Lipitor per home regimen. SCDs/ambulation Full code Dispo-to home. Arabella Gonzalez DO [facility] Hospitalist Admission and Anticipated Discharge Date Admission Date: January 22, 2023 Subjective 77 yo M presented with acute confusion and abnormal gait. Pt and gave history and report that they were in [place] yesterday doing well but when they got to [facility], the patient was reporting chills and started walking funny. Patient doesn't remember anything after this and states that he was confused and upset, not answering questions correctly. He was also exhibiting a shuffled abnormal gait. The patient reports a long history of chronic pain in both hips 2/2 prosthesis that later dislocated, knee issues, and a foot surgery that ultimately resulted in ambupation of some toes, affecting his balance and coordination on a daily basis. When he became confused yesterday, he was no longer able to compensate like he does normally and apparently his gait was more abnormal than usual. reports they then went to [facility] and he took one dose of doxycycline, which was previously prescribed by his PCP for a sinus infection. They went home and then daughter and became concerned that he was having a stroke and gage him to the hospital Brain MRI normal overnight Review of Systems Review of Systems: All systems were reviewed and negative except as indicated on HPI above. Physical Exam Physical Exam: CONSTITUTIONAL: WNWD, vitals as above, generally well-appearing, NAD EYES: EOMI bilaterally, pupils are round and equal bilaterally, normal conjunctivae, no scleral icterus, ENT: external ear and nose normal, oropharynx clear, no tonsil enlargement, right ear with clear effusion in middle ear, and left external auditory canal was blocked with cerumen. Couldn't visualize the TM on the left. There was no maxillary or ethmoid sinus tenderness NECK: trachea midline, no lymphadenopathy RESPIRATORY: clear to auscultation bilaterally, no crackles, rales or wheezes, normal respiratory effort CARDIOVASCULAR: regular rate and rhythm, S1 and 2 heard without murmurs, gallops or rubs, no JVD, no peripheral edema CHEST: inspection of chest was normal GASTROINTESTINAL: soft, nontender, ND, no guarding MUSCULOSKELETAL: strength 5/5 throughout, head is normocephalic and atraumatic, neck supple, normal palpation of chest wall without tenderness, ambulating at baseline. SKIN: warm and dry NEUROLOGIC: CN 2-12 grossly intact, no sensory deficit, normal cognition, normal speech, no tremor PSYCHIATRIC: alert cooperative and oriented to person, place and time. Euthymic mood, makes good eye contact, language grossly intact, recent and remote memory grossly intact. Results & Data Results & Data Vital Signs (Past 12 Hours) Vital Signs Temp Pulse Resp BP Pulse Ox O2 Del Method 01/23/23 08:26 36.9 C 57 L 16 124/65 95 Room Air 01/23/23 03:50 37.1 C 58 L 17 120/62 95 Room Air Laboratory Results Short CBC 01/22/23 01/23/23 Range/Units 16:41 04:41 WBC 9.44 10.09 (4.8-10.8) K/ul Hgb 13.5 L 12.3 L (14.0-18.0) g/dl Hct 38.4 L 35.7 L (42.0-52.0) % Plt Count 217 196 (130-400) K/uL BMP 01/22/23 01/23/23 16:41 04:41 Sodium 133 L 135 L Potassium 3.4 L 3.5 Chloride 99 101 Carbon Dioxide 26 27 BUN 21 15 Creatinine 0.75 0.63 Glucose 92 87 Calcium 9.2 8.6 Liver Function 01/22/23 Range/Units 16:41 Total Bilirubin 1.1 H (0.2-1.0) mg/dl AST 26 (13-39) U/L ALT 20 (7-52) U/L Alkaline Phosphatase 66 (34-104) U/L Albumin 4.5 (3.4-5.0) gm/dl Urine 01/22/23 Range/Units 18:37 Urine Color Yellow Urine Appearance Clear (Clear) Urine pH 5.0 (4.5-7.5) Ur Specific [place] 1.017 (1.000-1.030) Urine Protein Negative (Negative) Urine Glucose (UA) Negative (Negative) Diagnostic Findings Brain MRI 01/22/23 21:59 MR brain wo/w con CLINICAL HISTORY: stroke like symptoms TECHNIQUE: Multiplanar and multisequence MR images of the brain were obtained prior to and following administration of gadolinium contrast. Comparison: Comparison is made to CTA head and neck 01/22/2023 FINDINGS: Exam is limited by motion artifact. Incidental note is made of cavum septum pellucidum. No abnormal restricted diffusion is identified. Foci of T2 and FLAIR hyperintensity are noted in the paraventricular areas consistent with chronic small vessel ischemic disease. Ex vacuo ventriculomegaly and sulcal enlargement is noted compatible with diffuse encephalomalacia. No mass or abnormal enhancement is seen. There is no mass effect or midline shift. There is no evidence of acute intraparenchymal hemorrhage. No extra axial fluid collections are seen. The corpus callosum, pituitary gland, and cerebellar tonsils appear grossly unremarkable. Flow voids of the major intracranial arterial vessels are identified. Prominent sinus disease. IMPRESSION: No acute abnormalities. ACT 112: Negative or not required by law. Electronically signed by: Jordan Johnston M.D. 01/22/2023 11:27 PM Medications Administered Current Inpatient Medications Acetaminophen (Acetaminophen 325 Mg Tab) 650 mg PO Q4H PRN PRN Reason: Pain or Fever Stop: 02/21/23 21:58 Aspirin (Aspirin 81 Mg Ectab) 81 mg PO QAM [facility] Stop: 02/22/23 08:59 Last Admin: 01/23/23 09:28 Dose: 81 mg Atorvastatin Calcium (Atorvastatin 20 Mg Tab) 20 mg PO QPM [facility] Stop: 02/21/23 21:58 Last Admin: 01/22/23 23:26 Dose: 20 mg Doxycycline Hyclate (Doxycycline Hyclate 100 Mg Cap) 100 mg PO BID ALL Stop: 02/05/23 09:01 Last Admin: 01/23/23 09:27 Dose: 100 mg Hydrochlorothiazide (Hydrochlorothiazide 25 Mg Tab) 25 mg PO QAM [facility] Stop: 02/22/23 08:59 Last Admin: 01/23/23 09:28 Dose: 25 mg Sodium Chloride (Nss 1000ml) 1,000 mls @ 80 mls/hr IV .[id number] [facility] Stop: 02/21/23 21:58 Last Admin: 01/23/23 09:33 Dose: 80 mls/hr Miscellaneous Information (Pharmacist Discharge Med Rec Consult) 1 each N/A UD PRN PRN Reason: Consult Stop: 02/21/23 21:58 Multivitamins (Multivitamin Tab) 1 tab PO QAM ALL Stop: 02/22/23 08:59 Last Admin: 01/23/23 09:28 Dose: 1 tab Nitroglycerin (Nitroglycerin Sl 0.4 Mg/Tab Tab) 0.4 mg SL UD PRN PRN Reason: Chest Pain Stop: 02/21/23 21:58 Polyethylene Glycol (Polyethylene (Miralax) 17 Gm Pack) 17 gm PO DAILY PRN PRN Reason: Constipation Stop: 02/21/23 21:58
--- NOTE | 2023-01-23 11:22 | Cardiology Consultation ---
Date of Consultation January 23, 2023 Assessment & Plan (1) Generalized weakness: (2) Acute alteration in mental status: (3) Elevated troponin I level: Plan The patient may have had some increased balance problems and mental status change due to his infection or sinusitis and perhaps a UTI. In any case he was started on antibiotics and seems to be doing better. Echocardiogram was completely normal. I think the elevated troponin is not due to acute coronary syndrome. EKG reveals a sinus rhythm with left axis deviation. He has remained in sinus rhythm during his hospital stay. At this point I would recommend no additional cardiac work-up. History of Present Illness Attending Physician: Arabella Gonzalez, DO History of Present Illness This is a 77-year-old male patient with no significant history of heart disease. Most of his problems are orthopedic related due to previous surgeries as well as low back surgeries. He admits that his balance and ambulation are not good. Over the past several days he has had some nasal congestion as well as dysuria. He saw his PCP who started him on antibiotics which she only took yesterday. He was out with his shopping and he felt a little bit of a balance problem. They returned home and he had difficulty helping her with the packages and fell against his truck that was parked next door. Patient denies syncope. He just lost his balance and then had difficulty getting into his 's car to come to the emergency department. He is currently alert and oriented. No acute distress. On telemetry he has been in a sinus rhythm. EKG shows no acute changes. There was a minimal elevation in his cardiac troponins which is most likely a type II elevation. No complaints today. Allergies Allergy/AdvReac Type Severity Reaction Status Date / Time No Known Allergies Allergy Unknown Verified 01/22/23 21:23 Home Medications Medication Instructions Recorded Confirmed Type atorvastatin 20 mg tablet 20 mg PO QPM 04/06/21 01/22/23 History amoxicillin 500 mg capsule 500 mg PO UD 09/02/22 01/22/23 History multivitamin 1 tab PO QAM 09/02/22 01/22/23 History doxycycline hyclate 100 mg capsule 100 mg PO BID 01/22/23 01/22/23 History fluticasone propionate 50 2 spray intranasal DAILY 01/22/23 01/22/23 History mcg/actuation nasal spray,suspension (Flonase Allergy Relief) hydrochlorothiazide 25 mg tablet 25 mg PO DAILY 01/22/23 01/22/23 History potassium gluconate 595 mg (99 mg) 595 mg PO DAILY 01/22/23 01/22/23 History tablet prednisone 20 mg tablet 40 mg PO DAILY 01/22/23 01/22/23 History trazodone 150 mg tablet 150 mg PO HS 01/22/23 01/22/23 History triamcinolone acetonide 0.1 % 1 applic topical BID PRN flare ups 01/22/23 01/22/23 History lotion Patient History Medical History BPH (benign prostatic hyperplasia) 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 History of COVID-19 2020- FEVER, SORE THROAT, NO HOSPITALIZATION, NO CURRENT ISSUES Hx of dislocation of hip X 2 --LEFT Hx of steroid therapy recent hx of steroid injections thumb, knees, and back Hyperlipidemia Hypertension Surgical History H/O nasal septoplasty History of bunionectomy X 4 History of hip surgery LEFT, AFTER 2 HIP DISLOCATIONS, HAD TO BE "LOCKED" INTO PLACE Hx of colonoscopy S/P total hip arthroplasty B/L Social History Smoking Status: Former smoker Second Hand Exposure: Yes; Do You Dip or Chew Tobacco: No; Tobacco Cessation Education Requested by Patient: No Hx Alcohol Use: No Hx Substance Use: No Preferred Language: Argentine Communication Ability: Effective [employer] Attendant Required: No Beliefs That Will Affect Care: None Current Living Situation: Spouse Other Information That Helps Us Care for You: Yes (previously received steroid injections) Feels Safe at Home: Yes Safety Concerns: Feels Safe At This Time Assistive Devices: Cane, Hearing Aid - Bilateral, Hearing Aid - Left, Hearing Aid - Right and Walker Review of Systems Review of Systems: Review of Systems: See HPI for pertinent positives. All other 10 point review of systems are negative. Physical Exam Physical Exam: General: no acute distress and stated age Head: normocephalic, no masses, lesions, tenderness or abnormalities Eyes: conjunctiva are pink and non-injected, sclera clear Neck: supple, no adenopathy, no bruits, normal jugular venous pulse, no hepatojugular reflux Chest: normal shape and normal respiratory effort Lungs: clear to auscultation and percussion Cardiac Exam: - regular rate & rhythm, no murmurs gallops or rubs - normal S1, normal S2 Pulses: 2(+) throughout Abdomen: abdomen soft, non-tender, no abnormal masses and no hepatosplenomegaly Musculoskeletal: no gait disturbance, no joint inflammation, no deforming arthritis Extremities: no edema and no cyanosis Neuro: grossly normal exam Results & Data Vital Signs (Past 12 Hours) Vital Signs Temp Pulse Pulse Resp BP Pulse Ox O2 Del Method 01/23/23 11:05 54 L 01/23/23 08:26 36.9 C 57 L 16 124/65 95 Room Air 01/23/23 03:50 37.1 C 58 L 17 120/62 95 Room Air Laboratory Results Laboratory Results - last 24 hr 01/22/23 01/22/23 01/22/23 16:41 16:41 16:41 WBC 9.44 RBC 4.40 L Hgb 13.5 L Hct 38.4 L MCV 87.3 MCH 30.7 MCHC 35.2 RDW Std Deviation 39.6 RDW Coeff of Thomas 12.3 Plt Count 217 MPV 8.8 L Immature Gran % (Auto) 0.3 Neut % (Auto) 86.4 Lymph % (Auto) 3.6 [place] % (Auto) 9.5 Eos % (Auto) 0.1 Baso % (Auto) 0.1 Neut # (Auto) 8.15 H Lymph # (Auto) 0.34 L [place] # (Auto) 0.90 H Eos # (Auto) 0.01 Baso # (Auto) 0.01 Immature Gran # (Auto) 0.03 Sodium 133 L Potassium 3.4 L Chloride 99 Carbon Dioxide 26 Anion Gap 8 BUN 21 Creatinine 0.75 Est Cr Clr Drug Dosing 93.4 Est GFR ( Amer) 104.0 Est GFR (Non-Af Amer) 89.7 BUN/Creatinine Ratio 28.0 H Glucose 92 Estimat Average Glucose Hemoglobin A1c Calcium 9.2 Total Bilirubin 1.1 H AST 26 ALT 20 Alkaline Phosphatase 66 Troponin I High Sens 20.8 H Total Protein 7.3 Albumin 4.5 Globulin 2.8 Albumin/Globulin Ratio 1.6 Triglycerides Cholesterol LDL Cholesterol, Calc VLDL Cholesterol, Calc HDL Cholesterol Cholesterol/HDL Ratio TSH 1.812 Urine Color Urine Appearance Urine pH Ur Specific [place] Urine Protein Urine Glucose (UA) Urine Ketones Urine Blood Urine Nitrite Urine Bilirubin Urine Urobilinogen Ur Leukocyte Esterase Urine WBC (Auto) Urine RBC (Auto) U Hyaline Cast (Auto) U Epithel Cells (Auto) Urine Bacteria (Auto) Urine Opiates Screen Ur Methadone, Qual Urine Barbiturates Ur Phencyclidine (PCP) U Amphetamin/Meth Scrn Urine MDEA MDMA (Ecstasy) Screen MDMA Urine MDMA U Benzodiazepines Scrn Ur Cocaine Metabolite U Marijuana (THC) Screen Ethyl Alcohol mg/dL SARS-CoV-2 (PCR) Influenza Type A (PCR) Influenza Type B (PCR) RSV (RT-PCR) 01/22/23 01/22/23 01/22/23 16:41 17:15 18:37 WBC RBC Hgb Hct MCV MCH MCHC RDW Std Deviation RDW Coeff of Thomas Plt Count MPV Immature Gran % (Auto) Neut % (Auto) Lymph % (Auto) [place] % (Auto) Eos % (Auto) Baso % (Auto) Neut # (Auto) Lymph # (Auto) [place] # (Auto) Eos # (Auto) Baso # (Auto) Immature Gran # (Auto) Sodium Potassium Chloride Carbon Dioxide Anion Gap BUN Creatinine Est Cr Clr Drug Dosing Est GFR ( Amer) Est GFR (Non-Af Amer) BUN/Creatinine Ratio Glucose Estimat Average Glucose Hemoglobin A1c Calcium Total Bilirubin AST ALT Alkaline Phosphatase Troponin I High Sens Total Protein Albumin Globulin Albumin/Globulin Ratio Triglycerides Cholesterol LDL Cholesterol, Calc VLDL Cholesterol, Calc HDL Cholesterol Cholesterol/HDL Ratio TSH Urine Color Yellow Urine Appearance Clear Urine pH 5.0 Ur Specific [place] 1.017 Urine Protein Negative Urine Glucose (UA) Negative Urine Ketones 1+ H Urine Blood 1+ H Urine Nitrite Negative Urine Bilirubin Negative Urine Urobilinogen Negative Ur Leukocyte Esterase Negative Urine WBC (Auto) 1-5 Urine RBC (Auto) 5-10 H U Hyaline Cast (Auto) 1-5 U Epithel Cells (Auto) 0-5 Urine Bacteria (Auto) Negative Urine Opiates Screen Ur Methadone, Qual Urine Barbiturates Ur Phencyclidine (PCP) U Amphetamin/Meth Scrn Urine MDEA MDMA (Ecstasy) Screen MDMA Urine MDMA U Benzodiazepines Scrn Ur Cocaine Metabolite U Marijuana (THC) Screen Ethyl Alcohol mg/dL 10.7 H SARS-CoV-2 (PCR) NEGATIVE Influenza Type A (PCR) Negative Influenza Type B (PCR) Negative RSV (RT-PCR) Negative 01/22/23 01/22/23 01/23/23 18:37 18:37 04:41 WBC RBC Hgb Hct MCV MCH MCHC RDW Std Deviation RDW Coeff of Thomas Plt Count MPV Immature Gran % (Auto) Neut % (Auto) Lymph % (Auto) [place] % (Auto) Eos % (Auto) Baso % (Auto) Neut # (Auto) Lymph # (Auto) [place] # (Auto) Eos # (Auto) Baso # (Auto) Immature Gran # (Auto) Sodium 135 L Potassium 3.5 Chloride 101 Carbon Dioxide 27 Anion Gap 7 BUN 15 Creatinine 0.63 Est Cr Clr Drug Dosing 111.2 Est GFR ( Amer) 111.7 Est GFR (Non-Af Amer) 96.4 BUN/Creatinine Ratio 23.8 H Glucose 87 Estimat Average Glucose Hemoglobin A1c Calcium 8.6 Total Bilirubin AST ALT Alkaline Phosphatase Troponin I High Sens 21.0 H Total Protein Albumin Globulin Albumin/Globulin Ratio Triglycerides 46 Cholesterol 104 LDL Cholesterol, Calc 57 VLDL Cholesterol, Calc 9 HDL Cholesterol 38 Cholesterol/HDL Ratio 2.7 TSH Urine Color Urine Appearance Urine pH Ur Specific [place] Urine Protein Urine Glucose (UA) Urine Ketones Urine Blood Urine Nitrite Urine Bilirubin Urine Urobilinogen Ur Leukocyte Esterase Urine WBC (Auto) Urine RBC (Auto) U Hyaline Cast (Auto) U Epithel Cells (Auto) Urine Bacteria (Auto) Urine Opiates Screen Neg Ur Methadone, Qual Neg Urine Barbiturates Neg Ur Phencyclidine (PCP) Neg U Amphetamin/Meth Scrn Neg Urine MDEA Pending MDMA (Ecstasy) Screen Pos H MDMA Pending Urine MDMA Pending U Benzodiazepines Scrn Neg Ur Cocaine Metabolite Neg U Marijuana (THC) Screen Neg Ethyl Alcohol mg/dL SARS-CoV-2 (PCR) Influenza Type A (PCR) Influenza Type B (PCR) RSV (RT-PCR) 01/23/23 01/23/23 01/23/23 04:41 04:41 10:32 WBC 10.09 RBC 4.04 L Hgb 12.3 L Hct 35.7 L MCV 88.4 MCH 30.4 MCHC 34.5 RDW Std Deviation 41.1 RDW Coeff of Thomas 12.5 Plt Count 196 MPV 8.7 L Immature Gran % (Auto) 0.3 Neut % (Auto) 80.5 Lymph % (Auto) 7.4 [place] % (Auto) 11.3 Eos % (Auto) 0.3 Baso % (Auto) 0.2 Neut # (Auto) 8.12 H Lymph # (Auto) 0.75 L [place] # (Auto) 1.14 H Eos # (Auto) 0.03 Baso # (Auto) 0.02 Immature Gran # (Auto) 0.03 Sodium Potassium Chloride Carbon Dioxide Anion Gap BUN Creatinine Est Cr Clr Drug Dosing Est GFR ( Amer) Est GFR (Non-Af Amer) BUN/Creatinine Ratio Glucose Estimat Average Glucose 105 Hemoglobin A1c 5.3 Calcium Total Bilirubin AST ALT Alkaline Phosphatase Troponin I High Sens Pending Total Protein Albumin Globulin Albumin/Globulin Ratio Triglycerides Cholesterol LDL Cholesterol, Calc VLDL Cholesterol, Calc HDL Cholesterol Cholesterol/HDL Ratio TSH Urine Color Urine Appearance Urine pH Ur Specific [place] Urine Protein Urine Glucose (UA) Urine Ketones Urine Blood Urine Nitrite Urine Bilirubin Urine Urobilinogen Ur Leukocyte Esterase Urine WBC (Auto) Urine RBC (Auto) U Hyaline Cast (Auto) U Epithel Cells (Auto) Urine Bacteria (Auto) Urine Opiates Screen Ur Methadone, Qual Urine Barbiturates Ur Phencyclidine (PCP) U Amphetamin/Meth Scrn Urine MDEA MDMA (Ecstasy) Screen MDMA Urine MDMA U Benzodiazepines Scrn Ur Cocaine Metabolite U Marijuana (THC) Screen Ethyl Alcohol mg/dL SARS-CoV-2 (PCR) Influenza Type A (PCR) Influenza Type B (PCR) RSV (RT-PCR) Medications Administered Current Inpatient Medications Acetaminophen (Acetaminophen 325 Mg Tab) 650 mg PO Q4H PRN PRN Reason: Pain or Fever Stop: 02/21/23 21:58 Aspirin (Aspirin 81 Mg Ectab) 81 mg PO QAM [facility] Stop: 02/22/23 08:59 Last Admin: 01/23/23 09:28 Dose: 81 mg Atorvastatin Calcium (Atorvastatin 20 Mg Tab) 20 mg PO QPM [facility] Stop: 02/21/23 21:58 Last Admin: 01/22/23 23:26 Dose: 20 mg Doxycycline Hyclate (Doxycycline Hyclate 100 Mg Cap) 100 mg PO BID [facility] Stop: 02/05/23 09:01 Last Admin: 01/23/23 09:27 Dose: 100 mg Hydrochlorothiazide (Hydrochlorothiazide 25 Mg Tab) 25 mg PO QAM [facility] Stop: 02/22/23 08:59 Last Admin: 01/23/23 09:28 Dose: 25 mg Sodium Chloride (Nss 1000ml) 1,000 mls @ 80 mls/hr IV .[id number] [facility] Stop: 02/21/23 21:58 Last Admin: 01/23/23 09:33 Dose: 80 mls/hr Miscellaneous Information (Pharmacist Discharge Med Rec Consult) 1 each N/A UD PRN PRN Reason: Consult Stop: 02/21/23 21:58 Multivitamins (Multivitamin Tab) 1 tab PO QAM [facility] Stop: 02/22/23 08:59 Last Admin: 01/23/23 09:28 Dose: 1 tab Nitroglycerin (Nitroglycerin Sl 0.4 Mg/Tab Tab) 0.4 mg SL UD PRN PRN Reason: Chest Pain Stop: 02/21/23 21:58 Polyethylene Glycol (Polyethylene (Miralax) 17 Gm Pack) 17 gm PO DAILY PRN PRN Reason: Constipation Stop: 02/21/23 21:58
--- NOTE | 2023-01-23 13:23 | Discharge Summary ---
Discharge Summary Date of Service January 23, 2023 Notes For Next Care Provider Please re-evaluate UA in a few weeks to ensure resolution of microscopic hematuria. Medication Changes From Visit STOP Doxycycline START Cefdinir 400mg PO BID x 7 days Admission HPI Per Admitting Provider A 77-year-old male with past medical history significant for hyperlipidemia, deviated nasal septum, hypertension, history of BPH, sacroiliitis, status post nasal surgery, history of COVID, presents with imbalance and confusion. Around 1 o'clock and 2 p.m. today the patient with went to [facility]. When they walked in, the noticed that he is limping more than his usual. He has hip surgeries and he generally has some gait issues, but it was more than his usual, and when they got in the car, he seemed to be somewhat confused, could not put his seatbelt on and when they got out of car, he seemed to lose balance and fall back onto the car and also noticed that he was incontinent of urine when they went to the house. The patient says he has frequent micturition going on for some time and he felt that he could not wait until he goes to bathroom .. Speech is okay. thinks his confusion is mostly resolved, but he still has some gait issues. The patient is resting comfortably, hemodynamically stable. Speech is clear, could give his history: He was also having ongoing sinus issues. He had nasal surgery about a year ago and has chronic sinus issues. Since few weeks he is having nasal discharge and with cough and saw the family doctor today and was prescribed prednisone and doxycycline, took doxycycline, but not took the prednisone yet. Denies any headache. He has chronic neck pain, chronic back pain. Denies any chest pain. He has chronic knee pains. He says he is supposed to get a shot to his back .. Appetite is okay. Denies any chest pain, no shortness of breath, no nausea, no abdominal pain. Normal bowel movements. No blood in the stool or black stools. No hematuria, no burning micturitions. No fevers. He does night shifts and sleeps in the afternoon and takes trazodone prior to going to sleep. He says never took alcohol, but his alcohol level was slightly high in the ER. Admission Exam Per Admitting Provider PHYSICAL EXAMINATION: GENERAL: The patient is of moderate build, not in acute distress. VITAL SIGNS: Temperature 36.6, pulse 77, respiratory rate 16, blood pressure 120/57, oxygen 94% on room air. HEENT: Pupils equal, round and reactive to light. Extraocular muscles intact. Oral mucosa moist. NECK: No JVD. No neck masses. CARDIOVASCULAR: S1 and S2 heard. Regular rate and rhythm. No murmur, no gallop. RESPIRATORY SYSTEM: Normal AP diameter. No accessory muscle use. No wheezing or crackles. ABDOMEN: Soft, bowel sounds present, nontender, no distention. CENTRAL NERVOUS SYSTEM: Alert and oriented. Speech is clear. No facial droop. Tongue is midline. Can close his eyes tight and raise his brows. Power 5/5 in upper extremities, 4-5/5 in lower extremities. Can lift his lower extremity and hold. No pronator drift. Coordination of movements normal. Sensation is intact. Position sense intact. EXTREMITIES: No edema, no erythema. Principal Dx & Hospital Course #1 = Principal Diagnosis (1) Acute metabolic encephalopathy: 2/2 untreated UTI in the setting of an ongoing sinus infection. Resolved with abx. Cont with cefdinir to broadly cover both sources (sinus and urine) as there are no culture results to guide therapy. Patient had taken one dose of the doxycycline prior to arriving at the hospital, which is likely the reason there was no bacteria in the urine. No evidence of stroke clinically and brain MRI was negative. No other clear cause for confusion other than infection. (2) UTI (urinary tract infection): Improving. Patient reports that dysuria has resolved. Also wtih urinary frequency increase. Afebrile overnight and he is hemodynamically stable. (3) Asymptomatic microscopic hematuria: Likely related to UTI above. Recommend repeat UA after antibiotic therapy to ensure resolution. Explained this to and daughter as well as patient who all verbalized understanding with intent to comply. (4) Sinus infection: chronic issue with recent symptoms. Reports he is still blowing out greenish mucous. Change doxy to cefdinir and followup with PCP. (5) Elevated troponin I level: Trop was 20.8-->21-->15. Patient was seen by cardiology this admission who reviewed his echocardiogram, which was normal. His EKG reveals sinus rhythm with left axis deviation. No additional cardiac workup was recommended. (6) DJD (degenerative joint disease) of hip: Chronic pain and causes abnormal gait 2/2 compensation. This likely added to his gait instability noted by and daughter yesterday (7) Dislocation of hip prosthesis: Chronic pain and causes abnormal gait 2/2 compensation. This likely added to his gait instability noted by and daughter yesterday (8) History of amputation of toe: Chronic pain and causes abnormal gait 2/2 compensation. This likely added to his gait instability noted by and daughter yesterday (9) Hypertension: Chronic, at goal. Cont home HCTZ (10) Hyperlipidemia: Chronic, stable. Cont Lipitor per home regimen. SCDs/ambulation Full code Dispo-to home. I spent a total of60 minutes coordinating, documenting, and providing care for this patient excluding time spent in the performance of separately billed services Arabella Gonzalez DO [facility] Hospitalist Discharge Exam CONSTITUTIONAL: WNWD, vitals as above, generally well-appearing, NAD EYES: EOMI bilaterally, pupils are round and equal bilaterally, normal conjunctivae, no scleral icterus, ENT: external ear and nose normal, oropharynx clear, no tonsil enlargement, right ear with clear effusion in middle ear, and left external auditory canal was blocked with cerumen. Couldn't visualize the TM on the left. There was no maxillary or ethmoid sinus tenderness NECK: trachea midline, no lymphadenopathy RESPIRATORY: clear to auscultation bilaterally, no crackles, rales or wheezes, normal respiratory effort CARDIOVASCULAR: regular rate and rhythm, S1 and 2 heard without murmurs, gallops or rubs, no JVD, no peripheral edema CHEST: inspection of chest was normal GASTROINTESTINAL: soft, nontender, ND, no guarding MUSCULOSKELETAL: strength 5/5 throughout, head is normocephalic and atraumatic, neck supple, normal palpation of chest wall without tenderness, ambulating at baseline. SKIN: warm and dry NEUROLOGIC: CN 2-12 grossly intact, no sensory deficit, normal cognition, normal speech, no tremor PSYCHIATRIC: alert cooperative and oriented to person, place and time. Euthymic mood, makes good eye contact, language grossly intact, recent and remote memory grossly intact. Updated Medication List Medication Instructions Recorded Confirmed Type atorvastatin 20 mg tablet 20 mg PO QPM 04/06/21 01/22/23 History amoxicillin 500 mg capsule 500 mg PO UD 09/02/22 01/22/23 History multivitamin 1 tab PO QAM 09/02/22 01/22/23 History fluticasone propionate 50 2 spray intranasal DAILY 01/22/23 01/22/23 History mcg/actuation nasal spray,suspension (Flonase Allergy Relief) hydrochlorothiazide 25 mg tablet 25 mg PO DAILY 01/22/23 01/22/23 History potassium gluconate 595 mg (99 mg) 595 mg PO DAILY 01/22/23 01/22/23 History tablet trazodone 150 mg tablet 150 mg PO HS 01/22/23 01/22/23 History triamcinolone acetonide 0.1 % 1 applic topical BID PRN flare ups 01/22/23 01/22/23 History lotion cefdinir 300 mg capsule 300 mg PO BID #14 caps 01/23/23 Rx Hospital Stay Data Consultations 01/22/23 19:16 ED Decision to Admit Stat 01/23/23 08:00 Consult Cardiology Routine Consult Neurology Routine Diagnostic Imagining Performed 01/22/23 16:35 CT head/brain wo con Stat 01/22/23 20:22 CT angio head w con Urgent CT angio neck with con Urgent 01/22/23 21:59 MR brain wo/w con Urgent Pending Results Patient Have Any Pending Studies at Discharge: No Discharge Instructions Given to Patient (Per Discharging Provider) Please take all medications as instructed on the discharge list below. Please hold off on taking doxycycline and start cefdinir instead. Please followup with your primary care provider in one week to touch base on how you are feeling since returning home. This appointment will be important to discuss that the microscopic blood in your urine was probably from the urinary tract infection, but we will need a repeat urinalysis in a couple of weeks to ensure this is resolved. If not, further investigation may be warranted. It was a pleasure taking care of you! Please call if you have any questions or problems. You can reach a [facility] hospitalist on duty at [facility] 24 hours a day by calling [phone]. Take care of yourself. Arabella Gonzalez DO [facility] Hospitalist Total Time Total Time Spent Total Time Spent (In Minutes): 60
[2023-01-28 15:13] LABS: MDA negative; MDEA negative; MDMA (Ecstasy) Urine, Confirm negative
== END 2023-01-23 13:48 | disposition home or self-care (01) | DRG 689 ==
LOC: ED 16:25 → 4W 20:22

== ENCOUNTER 2023-10-14 06:59 | Inpatient (IN) ==
--- NOTE | 2023-09-06 15:50 | PAT Medication Instructions ---
Medication Instructions Date of Service September 06, 2023 Home Medications atorvastatin 20 mg tablet 20 mg PO QPM amoxicillin 500 mg capsule 2,000 mg PO DIRECTED PRN PRIOR TO DENTAL PROCEDURES fluticasone propionate 50 mcg/actuation nasal spray,suspension (Flonase Allergy Relief) 2 spray intranasal DAILY PRN Congestion hydrochlorothiazide 25 mg tablet 25 mg PO QAM potassium gluconate 595 mg (99 mg) tablet 595 mg PO DAILY trazodone 150 mg tablet 150 mg PO HS triamcinolone acetonide 0.1 % lotion 1 applic topical BID PRN flare ups [id number] tablet 1 tab PO DAILY naproxen sodium 220 mg tablet 220 mg PO PM Continue as directed amoxicillin 500 mg capsule 2,000 mg PO DIRECTED PRN PRIOR TO DENTAL PROCEDURES (if needed) ASK your surgeon for instructions naproxen sodium 220 mg tablet 220 mg PO PM STOP taking 24 hours before surgery triamcinolone acetonide 0.1 % lotion 1 applic topical BID PRN flare ups DO NOT take the morning of surgery hydrochlorothiazide 25 mg tablet 25 mg PO QAM potassium gluconate 595 mg (99 mg) tablet 595 mg PO DAILY [id number]-[id number]-tvddtm tablet 1 tab PO DAILY Take morning of surgery OTHERWISE NOTHING TO EAT OR DRINK AFTER MIDNIGHT: fluticasone propionate 50 mcg/actuation nasal spray,suspension (Flonase Allergy Relief) 2 spray intranasal DAILY PRN Congestion (if needed) Take evening before surgery atorvastatin 20 mg tablet 20 mg PO QPM fluticasone propionate 50 mcg/actuation nasal spray,suspension (Flonase Allergy Relief) 2 spray intranasal DAILY PRN Congestion (if needed) trazodone 150 mg tablet 150 mg PO HS Other Notes If you have any questions please call us at [phone] or [phone] or [phone] or [phone]
--- NOTE | 2023-09-07 11:26 | Anesthesiology Consultation ---
Date of Service September 07, 2023 Assessment & Plan (1) Encounter for pre-operative examination: - Infectious disease screening: Per assessment on 09/07/23: No known infectious disease contacts or current infectious disease symptoms. No noted Covid positive test result in past 90 days. - Outpatient joint assessment: Pt currently scheduled for inpatient pathway. If surgeon requests review for outpatient joint pathway, patient is not recommended candidate for outpatient joint program from anesthesia standpoint for MUNDO revision based on available information. - Patient acceptable risk for surgery pending surgeon-ordered PCP preop evaluation (Dr. Anthony Treviño/S, appt 09/09). Chart Review Chart Review: Patient seen in Pre Admission Testing Teaching & Discussion Pre-Anesthesia Teaching/Discussion Notes: Instructed NPO after midnight before surgery,except medications with 15 cc of water. Medication instructions provided according to the PAT guidelines. History Surgery Operation Date: 10/14/23 10:15 Proposed Procedures p Left Total Hip Replacement Acetabular Revision - Anterior Approach - Jonathan Chin MD Height/Weight Height: 6 ft Weight: 93.9 kg Allergies Allergy/AdvReac Type Severity Reaction Status Date / Time No Known Allergies Allergy Unknown Verified 09/06/23 14:33 Medications Home Medications Medication Instructions Recorded Confirmed Last Taken atorvastatin 20 mg tablet 20 mg PO QPM 04/06/21 09/06/23 09/07/22 amoxicillin 500 mg capsule 2,000 mg PO DIRECTED PRN PRIOR 09/02/22 09/06/23 Unknown TO DENTAL PROCEDURES fluticasone propionate 50 2 spray intranasal DAILY PRN 01/22/23 09/06/23 Unknown mcg/actuation nasal Congestion spray,suspension (Flonase Allergy Relief) hydrochlorothiazide 25 mg tablet 25 mg PO QAM 01/22/23 09/06/23 Unknown potassium gluconate 595 mg (99 mg) 595 mg PO DAILY 01/22/23 09/06/23 Unknown tablet trazodone 150 mg tablet 150 mg PO HS 01/22/23 09/06/23 Unknown triamcinolone acetonide 0.1 % 1 applic topical BID PRN flare ups 01/22/23 09/06/23 Unknown lotion xolxlgafpllj-ehdenwqa-dgadtl tablet 1 tab PO DAILY 05/02/23 09/06/23 Unknown naproxen sodium 220 mg tablet 220 mg PO PM 09/06/23 09/06/23 Unknown Past Medical History Medical History UTI (urinary tract infection) [facility] admission 01/2023, Acute metabolic encephalopathy 2/2 untreated UTI in setting of ongoing sinus infection (Abx treatment inpatient), elevated troponins (cardio consult inpatient, EKG/Echo unremarkable, no additional cardiac workup recommended, "minimal elevation in the cardiac troponins which is most likely a type II elevation") > no issues since LBBB (left bundle branch block) ECG 01/22/23 with Left ventricular hypertrophy with QRS widening and repolarization abnormality, Echo 01/23/23 BPH (benign prostatic hyperplasia) Hx of steroid therapy Recent hx of steroid injections thumb, knees, and back Hyperlipidemia Hypertension History of COVID-19 2020- fever, sore throat > resolved Hx of dislocation of hip x2, Left Exercise / Class Metabolic Activity II 4-5 Yardwork/Stairs/Walk up hill (one FS (no CP, no SOB)) Past Family History Family History Father Cancer Past Surgical History Surgical History 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) History of tooth extraction History of cataract surgery Hx of colonoscopy History of bunionectomy x4 History of hip surgery Left, had to be "locked into place" after 2 hip dislocations H/O nasal septoplasty S/P total hip arthroplasty R/L Past Anesthesia History No Hx of Anesthesia Complications and No Family Hx of Anesthesia Complications History of PONV No Hx of PONV and No Hx of Motion Sickness Social History Smoking Status: Former smoker tobacco type: cigarettes Do You Dip or Chew Tobacco: No Smoking End Date: Quit 40+ years ago Hx Alcohol Use: No Hx Substance Use: No substance use type: does not use Review of Systems No formal testing, does observe apneic spells. Patient denies chest pain, shortness of breath, dyspnea on exertion, fever, chills, cough, wheezing, palpitations. Physical Exam Vital Signs VITALS BP 157/76 P 56 TEMP 98.1 SP02 95%RA RESP 18 PHYSICAL Full cervical extension range of motion. Full TMJ range of motion. TMD 3 finger breaths Mallampati Score 1 Dentition: upper partial Lungs: clear throughout to auscultation Cardiac: regular rate and rhythm, no murmurs noted Spine: normal Carotid arteries: negative bruit Extremities: no LE edema Lab Results Anesthesia Preop Results Results Anesthesia Widget: WBC 5.62 K/ul (4.8-10.8) 09/07/23 Hgb 12.6 g/dl (14.0-18.0) L 09/07/23 Hct 37.2 % (42.0-52.0) L 09/07/23 Plt 253 K/uL (130-400) 09/07/23 Na 138 mmol/L (136-145) 09/07/23 K 3.9 mmol/L (3.5-5.1) 09/07/23 Cl 103 mmol/L (98-107) 09/07/23 CO2 28 mmol/L (21-32) 09/07/23 BUN 18 mg/dl (6-23) 09/07/23 Creat 0.75 mg/dl (0.6-1.4) 09/07/23 Glucose Level 80 mg/dl (70-99(Fasting)) 09/07/23 PT 10.7 Seconds (9.0-12.0) 09/07/23 PTT 29.5 Seconds (21.0-31.0) 09/07/23 INR 1.0 (0.9-1.1) 09/07/23 Urine Color Yellow 09/07/23 Urine Appearance Clear (Clear) 09/07/23 Urine pH 6.5 (4.5-7.5) 09/07/23 Urine Specific [place] 1.020 (1.000-1.030) 09/07/23 Urine Protein Negative (Negative) 09/07/23 Urine Glucose (UA) Negative (Negative) 09/07/23 Urine Ketones Negative (Negative) 09/07/23 Urine Blood Negative (Negative) 09/07/23 Urine Nitrite Negative (Negative) 09/07/23 Urine Bilirubin Negative (Negative) 09/07/23 Urine Urobilinogen Negative (Negative) 09/07/23 Urine Leukocyte Esterase Negative (Negative) 09/07/23 Blood Type O Positive 09/07/23 Antibody Screen NEGATIVE 09/07/23 Testing Electrocardiogram Date: 05/02/23 Sinus bradycardia 56 bpm. LAD. LVH with QRS widening. Poor R wave progression, consider anterior AL versus lead placement versus LVH. No significant change compared to 01/23/2023 per animal ride manager comparison. Echo performed 01/23/2023* Echocardiogram Date: 01/23/23 EF 55-60%. LV wall motion is normal. No significant valvular disease.
--- NOTE | 2023-10-12 16:59 | History & Physical Report ---
Date of Service October 12, 2023 Assessment & Plan (1) Hip joint instability: Plan Plan: Exploration and revision left hip to more acceptable Position most likely with dual mobility liner overnight stay. History of Present Illness Chief Complaint: Recurrent instability left hip Primary Care Provider: Anthony Treviño DO Patient is a 78-year-old male with a history of left total hip replacement performed December 2006 by another physician. He has had multiple dislocations and in 2013 underwent operation for placement of contact strain insert. He has continued to have dislocations most recently 07/17. He has had a workup with CT scan which shows his acetabular component is retroverted and in well position. He continues to have recurrent instability and because of a malposition socket is admitted for exploration and revision of the socket to a more acceptable position. Allergies Allergy/AdvReac Type Severity Reaction Status Date / Time No Known Allergies Allergy Unknown Verified 09/06/23 14:33 Home Medications Medication Instructions Recorded Confirmed Type atorvastatin 20 mg tablet 20 mg PO QPM 04/06/21 09/06/23 History amoxicillin 500 mg capsule 2,000 mg PO DIRECTED PRN PRIOR 09/02/22 09/06/23 History TO DENTAL PROCEDURES fluticasone propionate 50 2 spray intranasal DAILY PRN 01/22/23 09/06/23 History mcg/actuation nasal Congestion spray,suspension (Flonase Allergy Relief) hydrochlorothiazide 25 mg tablet 25 mg PO QAM 01/22/23 09/06/23 History potassium gluconate 595 mg (99 mg) 595 mg PO DAILY 01/22/23 09/06/23 History tablet trazodone 150 mg tablet 150 mg PO HS 01/22/23 09/06/23 History triamcinolone acetonide 0.1 % 1 applic topical BID PRN flare ups 01/22/23 09/06/23 History lotion csanroilzsyy-heqjkwwd-sxrrdk tablet 1 tab PO DAILY 05/02/23 09/06/23 History naproxen sodium 220 mg tablet 220 mg PO PM 09/06/23 09/06/23 History Past Med/Surg History Medical History UTI (urinary tract infection) [facility] admission 01/2023, Acute metabolic encephalopathy 2/2 untreated UTI in setting of ongoing sinus infection (Abx treatment inpatient), elevated troponins (cardio consult inpatient, EKG/Echo unremarkable, no additional cardiac workup recommended, "minimal elevation in the cardiac troponins which is most likely a type II elevation") > no issues since LBBB (left bundle branch block) ECG 01/22/23 with Left ventricular hypertrophy with QRS widening and repolarization abnormality, Echo 01/23/23 BPH (benign prostatic hyperplasia) Hx of steroid therapy Recent hx of steroid injections thumb, knees, and back Hyperlipidemia Hypertension History of COVID-2020- fever, sore throat > resolved Hx of dislocation of hip x2, Left Surgical History 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) History of tooth extraction History of cataract surgery Hx of colonoscopy History of bunionectomy x4 History of hip surgery Left, had to be "locked into place" after 2 hip dislocations H/O nasal septoplasty S/P total hip arthroplasty R/L Family History Father Cancer Social History Smoking Status: Former smoker Smoking End Date: Quit 40+ years ago; Second Hand Exposure: No; Do You Dip or Chew Tobacco: No; Tobacco Cessation Education Requested by Patient: No Hx Alcohol Use: No Hx Substance Use: No Preferred Language: Yakut Communication Ability: Effective Phlebotomy Director Required: No Beliefs That Will Affect Care: None Current Living Situation: Spouse Other Information That Helps Us Care for You: No Feels Safe at Home: Yes Safety Concerns: Feels Safe At This Time Assistive Devices: Cane, Denture - Upper, Glasses and Hearing Aid - Bilateral Review of Systems Review of Systems: Hip instability Physical Exam Physical Exam: Weight 93 kg, BMI 28 General: Thin statured male that appears to be his stated age. HEENT: NCAT, EOMI, PERRLA Neck: Without bruits Heart: Regular rate and rhythm no murmurs Lungs: Breath sounds present and equal and clear in all qiu Abdomen: Soft nontender bowel sounds positive Extremities: Left hip shows scars consistent with previous surgery through a posterior approach leg lengths are equal passive range of motion is 0 to 90 degrees flexion 0 degrees internal rotation with apprehension. Neurological and vascular: Intact
--- NOTE | 2023-10-13 08:16 | History & Physical Report ---
Date of Service October 12, 2023 Assessment & Plan (1) Hip joint instability: Plan Plan: Exploration and revision left hip to more acceptable Position most likely with dual mobility liner overnight stay. History of Present Illness Primary Care Provider: Anthony Treviño DO Allergies Allergy/AdvReac Type Severity Reaction Status Date / Time No Known Allergies Allergy Unknown Verified 09/06/23 14:33 Home Medications Medication Instructions Recorded Confirmed Type atorvastatin 20 mg tablet 20 mg PO QPM 04/06/21 09/06/23 History amoxicillin 500 mg capsule 2,000 mg PO DIRECTED PRN PRIOR 09/02/22 09/06/23 History TO DENTAL PROCEDURES fluticasone propionate 50 2 spray intranasal DAILY PRN 01/22/23 09/06/23 History mcg/actuation nasal Congestion spray,suspension (Flonase Allergy Relief) hydrochlorothiazide 25 mg tablet 25 mg PO QAM 01/22/23 09/06/23 History potassium gluconate 595 mg (99 mg) 595 mg PO DAILY 01/22/23 09/06/23 History tablet trazodone 150 mg tablet 150 mg PO HS 01/22/23 09/06/23 History triamcinolone acetonide 0.1 % 1 applic topical BID PRN flare ups 01/22/23 09/06/23 History lotion zecoujrlzixp-culnvpln-akkdih tablet 1 tab PO DAILY 05/02/23 09/06/23 History naproxen sodium 220 mg tablet 220 mg PO PM 09/06/23 09/06/23 History Past Med/Surg History Medical History UTI (urinary tract infection) [facility] admission 01/2023, Acute metabolic encephalopathy 2/2 untreated UTI in setting of ongoing sinus infection (Abx treatment inpatient), elevated troponins (cardio consult inpatient, EKG/Echo unremarkable, no additional cardiac workup recommended, "minimal elevation in the cardiac troponins which is most likely a type II elevation") > no issues since LBBB (left bundle branch block) ECG 01/22/23 with Left ventricular hypertrophy with QRS widening and repolarization abnormality, Echo 01/23/23 BPH (benign prostatic hyperplasia) Hx of steroid therapy Recent hx of steroid injections thumb, knees, and back Hyperlipidemia Hypertension History of COVID-2020- fever, sore throat > resolved Hx of dislocation of hip x2, Left Surgical History 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) History of tooth extraction History of cataract surgery Hx of colonoscopy History of bunionectomy x4 History of hip surgery Left, had to be "locked into place" after 2 hip dislocations H/O nasal septoplasty S/P total hip arthroplasty R/L Family History Father Cancer Social History Smoking Status: Former smoker Smoking End Date: Quit 40+ years ago; Second Hand Exposure: No; Do You Dip or Chew Tobacco: No; Tobacco Cessation Education Requested by Patient: No Hx Alcohol Use: No Hx Substance Use: No Preferred Language: Upper Sorbian Communication Ability: Effective Product Marketing Analyst Required: No Beliefs That Will Affect Care: None Current Living Situation: Spouse Other Information That Helps Us Care for You: No Feels Safe at Home: Yes Safety Concerns: Feels Safe At This Time Assistive Devices: Cane, Denture - Upper, Glasses and Hearing Aid - Bilateral Review of Systems Review of Systems: Hip instability Physical Exam Physical Exam: Weight 93 kg, BMI 28 General: Thin statured male that appears to be his stated age. HEENT: NCAT, EOMI, PERRLA Neck: Without bruits Heart: Regular rate and rhythm no murmurs Lungs: Breath sounds present and equal and clear in all qiu Abdomen: Soft nontender bowel sounds positive Extremities: Left hip shows scars consistent with previous surgery through a posterior approach leg lengths are equal passive range of motion is 0 to 90 degrees flexion 0 degrees internal rotation with apprehension. Neurological and vascular: Intact
[~2023-10-14 06:59] MED LIST: ACETAMINOPHEN 500 MG TAB PO SCH; BUPIVACAINE 0.5 % 5 MG/1 ML PF 10ML VIAL ONE; CeleBREX 200 MG CAP PO SCH; FAMOTIDINE 20 MG TAB PO SCH; GABAPENTIN 300 MG CAP PO SCH; LR 500ML BOLUS, THEN 15ML/HR IV SCH; LR 60ML/HR IV SCH; METOCLOPRAMIDE HCL 10 MG TABLET PO SCH; ROPIVACAINE 0.5% HCL/PF 150 MG, BUPIVACAINE 0.75% MPF 20 ML, EPINEPHrine 30MG/30ML (OR ... INSTIL SCH; TRANEXAMIC ACID 1,000 MG **IV Intra-op IV SCH; TRANEXAMIC ACID 1,000 MG **IV Pre-op IV SCH; VANCOMYCIN HCL 1,500 MG in SODIUM CHLORIDE 0.9% 500 ML IV SCH; ceFAZolin 2000MG 2,000 MG/15 ML SYR IV SCH; dexAMETHasone 4 MG TAB PO SCH; traMADol HCL 50 MG TABLET PO SCH
--- OUTSIDE RECORDS SUMMARY | 2023-10-14 07:06 | External Medical Summary | Summary of Care ---
Author Name Unknown Organization [facility] Address [address] [facility] [place] [address] Phone [phone] Care Team Providers Care Bladder Cleaner Name Role Phone Anthony Treviño DO Primary Care Provider [phone] Reason for Visit * Reason Onset Date Comments Advice 07/06/2023 Encounter Details Date Type Department Care Team (Late st Contact Info) Description 07/06/2023 Telephone Family Practice [facility] [place] [address] [facility] [place] [address] Anthony Treviño DO [address] [place] [address] Advice Allergies No known active allergiesdocumented as of this encounter (statuses as of 10/05/2023) Medications Medication Sig Dispensed Refills Start Date End Date Status Potassium Gluconate ER 595 MG TBCR Take 99 mg by mouth once for 1 dose. 1 Tab 0 06/02/2017 Active Amoxicillin 500 MG Oral Capsule (Amoxil) Prior to dental appts 0 02/03/2021 Active Triamcinolone Acetonide 0.1 % External Lotion (Aristocort) Apply topically to affected area 2 times a day. To affected area. 60 mL 5 02/11/2021 Active Centrum Silver 50+Men Oral Tablet Take by mouth once . 0 Active traZODone HCl 150 MG Oral Tablet (Desyrel) Take 1 Tablet (150 mg) by mouth at bedtime. 90 Tablet 3 09/15/2022 Active Fluticasone Propionate 50 MCG/ACT Nasal Suspension (Flonase) INSTILL 2 SPRAYS IN EACH NOSTRIL EVERY DAY 0 07/21/2022 Active Atorvastatin Calcium 20 MG Oral Tablet (Lipitor) TAKE 1 TABLET NIGHTLY 90 Tablet 3 05/11/2023 Active hydroCHLOROthiaz harley 25 MG Oral Tablet (Hydrodiuril) TAKE 1 TABLET DAILY 90 Tablet 1 03/01/2023 08/11/2023 Discontinued documented as of this encounter (statuses as of 10/05/2023) Active Problems Problem Noted Date Diagnosed Date History of 2019 novel coronavirus disease (COVID -19) 12/16/2021 S/P nasal surgery 03/05/2021 Sacroiliitis, not elsewhere classified 9 Hypertrophy of both inferior nasal turbinates Acquired absence of other right toe(s) 8 Essential hypertension with goal blood pressure less than 140/90 08/11/2016 Deviated nasal septum 06/04/2016 Hip joint replacement status 08/31/2011 Overview: 03/08/2015: reconstruction left hip after repeated dislocation 12/23/2006: left THR Dyslipidemia, goal LDL below 130 08/31/2011 BPH without obstruction/lower urinary tract symp toms 04/09/2011 No advance directive on file 06/08/2005 Overview: No, Advance Directive brochure offered , patient declined. documented as of this encounter (statuses as of 10/05/2023) Resolved Problems Problem Noted Date Diagnosed Date Resolved Date History of epistaxis 01/22/2020 020 Essential hypertension with goal blood pressure less than 130/80 06/04/2016 08/11/2016 Epistaxis, recurrent 06/04/2016 020 Recurrent dislocation of hip joint prosthesis 02/02/20 15 08/10/2017 Overview: Left MUNDO 2006, two episodes of posterior dislocation 2014 Dislocation of hip joint prosthesis 12/20/2014 08/06/2015 Overview: LEFT twice 12/20/2014, 01/30/2015 HTN, goal below 130/80 08/31/201106/04 Epistaxis 03/10/2010 04/12/2011 Dyslipidemia, goal to be determined 04/04/2009 08/31/2011 Benign neoplasm of colon 03/26/200803/2019 Overview: 05/14/2014: 5 mm transverse colon adenoma, repeat 3 years 04/04/2011: 3 small adenomas removed, repeat in 201303/26/2008: adenomatous/repeat colonoscopy in 3 yrs documented as of this encounter (statuses as of 10/05/2023) Immunizations Name Administration Dates Next Due COVID-19 mRNA, LNP-s, No Pre serve, 2-Dose Series ([place]) 08/29/2021,01/11/2021,12/21/2020,11/25 Pneumococcal Conjugate Vacc, 13 Valent (Prevnar) 04/04/2015 Pneumococcal Polysaccharide PPV23 (Pneumovax) 08/11/2016,03/28/2008,10/25/2007 Seasonal Influenza Virus Vac cine, Unspecified Formulation 08/13/2018 Seasonal Influenza, PF, 6 M & above, IM , (FluLaval or Fluzone) 08/19/2018,08/09/2017 Seasonal Influenza, Quadriva lent Hd (Fluzone Hd) 07/06/2022 Seasonal Influenza, Quadriva lent, No Preserve, IM 07/19/2020,08/11/2016,08/06/2015 Seasonal Influenza, Split, I IV3, With Preserve, Inj 08/01/2014,09/02/2013,08/25/2012,08/26,08/28/2010,08/08/2009,08/25/2008 ,08/29/2007,09/02/2006 Seasonal Influenza, Trivalen t, Adjuvanted, 65+ yrs 07/18/2021,08/04/2019 TD - Tetanus/Diptheria (ADULT) 10/25/1989 TDAP (age 11 and older)(Adacel) 02/03/2014,04/04 Varicella Zoster Vaccine (Adult) 08/01/2014 Zoster Vaccine Recombinant (Shingrix) 10/10/2020 ,04/18/2020 documented as of this encounter Social History Tobacco Use Types Packs/Day Years Used Date Smoking Tobacco: Former Cigarettes 0.5 1 Q uit: 10/25/1967 Smokeless Tobacco: Never Alcohol Use Standard Drinks/Week Comments No 0 (1 standard drink = 0.6 oz pure alcohol) occ wine, stopped about age 42 had a problem PHQ-2 Answer Date Recorded PHQ Adult Total Score 0 10/16/2022 Sex and Gender Information Value Date Recorded Sex Assigned at Not on file Gender Identity Not on file Sexual Orientation Not on file Job Start Date Occupation Industry Not on file Not on file Not on file documented as of this encounter Miscellaneous Notes * Telephone Encounter - Shaila Strong OSA - 07/08/2023 8:37 AM EDT Pt notified. He does not have a surgery date confirmed yet, so will reach out to Dr. Chin's office and then call back to schedule pre op clearance w/in 30 days. No further questions/ concerns at this time. * Telephone Encounter - Anthony Treviño DO - 07/07/2023 4:55 PM EDT Please schedule for a 40 minute pre-op with someone within the 30 days before his operation * Telephone Encounter - Paco Patel OSA - 07/06/2023 9:05 AM EDT Patient calling in stating that he is having left hip surgery in September with Dr. Chin at [facility]. He stated that he was advised to call Dr. Treviño regarding what he needs to do for surgery. Pleaseadvise. documented in this encounter Plan of Treatment Upcoming Encounters Date Type Department Care Team (Late st Contact Info) Description 10/29/2023 9:30 AM EST Office Visit Otolaryngology [facility] [address] [id number] Lopez Carrion DO [address] [place] [address] 11/24/2023 10:00 AM EST Office Visit Family Practice [address] [place] [address] [facility] [place] [address] Anthony Treviño DO [address] [facility] [place] [address] Scheduled Procedures Name Priority Associated Diagnoses Date/Ti me COLONOSCOPY FLEXIBLE PROXIMAL DIAGNOSTIC Recall History of colon polyps Health Maintenance Due Date Last Done Comments COVID-19 Vaccine (2022- season) 2023 08/29/2021, 01/11/2021, 12/21/2020, Additional history exists Depression Screening 10/16/2023 10/16/2022 DTaP,Tdap,and Td Vaccines (3 - Td or Tdap) 02/04/2024 02/03/2014, 04/04/2009, 10/25/1989 GFR 09/07/2024 09/07/2023, 03/26, 04/11/2022, Additional history exists Albumin/Creatinine Ratio 04/15/2026 04/15/2023, 12/23 COLONOSCOPY-EVERY 5 YRS AGES 18-100 09/08/2027 09/08/2022, 08/23/2017, 08/23/2017, Additional history exists Pneumococcal Vaccine: 65+ Years Completed 08/11/2016, 04/04/2015, 03/28/2008, Additional history exists Zoster Vaccines Completed 10/10/2020, 03/26, 08/01/2014 Influenza Vaccine (FLU shot) Completed , 07/06/2022, 07/18/2021, Additional history exists GARDASIL-HPV IMMUNIZATION SERIES Aged Out No longer eligible based on patient's age to complete this topic Hepatitis B Aged Out No longer eligi ble based on patient's age to complete this topic MENINGOCOCCAL (MENACTRA/MENVEO) Aged Out No longer eligible based on patient's age to complete this topic documented as of this encounter Medical Devices Not on filedocumented as of this encounter Advance Directives Documents on File Type Date Recorded Patient Warehouse Assistant Expl anation Advance Directives and Kait mustafa Will 12/07/2017 LIVING WILL Power of Technical Clerk 12/07/2017 POWER OF A TTORNEY Care Teams Bladder Cleaner Relationship Specialty Start Date End Date Anthony Treviño DO [address] [place] [address] PCP - General Family Medicine 05/22/17 documented as of this encounter
[2023-10-14] MEDS ORDERED: ROPIVACAINE 0.5% 5 MG/ML 30 ML VIAL ONE (07:14)
--- NOTE | 2023-10-14 09:56 | History & Physical Bridge Note ---
Date of Service October 14, 2023 History & Physical Bridge Note I have examined the patient, reviewed the History & Physical and in the interval since the performance of the History & Physical I have noted the following changes of clinical significance: no changes noted
[2023-10-14] MEDS ORDERED: fentaNYL citrate PF 100 MCG/2 ML VIAL ONE (10:08)
[2023-10-14] MEDS ORDERED: MIDAZOLAM HCL 1 MG/ML 2ML VIAL ONE (10:08)
[2023-10-14] MEDS ORDERED: LIDOCAINE 2% 2 ML VIAL/AMP(20MG/ML) INFIL ONE (10:30)
[2023-10-14] MEDS ORDERED: PROPOFOL IV EMULSION 10 MG/ML 20 ML VIAL IV ONE ×5 (10:30→15:26)
[2023-10-14] MEDS ORDERED: ORTHO JOINT ANESTHETIC ONE (10:38)
[2023-10-14] MEDS ORDERED: ePHEDrine sulfate 50 MG/ML AMP IV PRN (11:31)
[2023-10-14] MEDS ORDERED: ATROPINE SULFATE 0.1 MG/ML 10ML SYR IV PRN (11:31)
[2023-10-14] MEDS ORDERED: HYDROmorphone INJ 1 MG/ML SYRINGE IV PRN (11:31)
[2023-10-14] MEDS ORDERED: KETOROLAC 30 MG/ML VIAL IV PRN (11:31)
[2023-10-14] MEDS ORDERED: ePHEDrine sulfate 50 MG/ML AMP ONE (13:44)
[2023-10-14] MEDS ORDERED: PHENYLEPHRINE 100MCG/ML 10ML SYR IV ONE (13:44)
[2023-10-14] MEDS ORDERED: ALBUMIN HUMAN 5% 12.5 GM/250 ML VIAL IV ONE (14:24)
[2023-10-14] MEDS ORDERED: KETAMINE HCL 10MG/ML SYR ONE (14:37)
[2023-10-14] MEDS ORDERED: SODIUM CHLORIDE 0.9% 250 ML IV PRN (15:11)
[2023-10-14] MEDS ORDERED: PHENYLEPHRINE HCL 10 MG/ML VIAL ONE (15:14)
--- NOTE | 2023-10-14 15:28 | Post Operative Brief Note ---
Immediate Post Op Note v1 Date of Surgery October 14, 2023 Pre & Post Diagnosis Operation Date: 10/14/23 10:15 Pre-Op Diagnosis: Left Total Hip Replacement Recurrent Dislocation Post-Op Diagnosis: Left Total Hip Replacement Recurrent Dislocation I identified the patient and participated in the time-out.: Yes Procedure Operation Date: 10/14/23 10:15 Actual Procedures p Left Anterior Approach Total Hip Replacement, Acetabular Revision(Left) - Jonathan Chin MD Surgeon Jonathan Chin MD Photoengraving Machine Operator/Tender Omkar Pisano PATylerC Estimated Blood Loss 300 Findings Consistent with Post-Op Diagnosis Drains Hemovac Drain
[2023-10-14] MEDS ORDERED: MAGNESIUM HYDROXIDE SUSP 30 ML UDC PO PRN (15:30)
[2023-10-14] MEDS ORDERED: oxyCODONE HCL IR 5 MG TAB (IMMEDIATE RELEASE) PO PRN (15:30)
[2023-10-14] MEDS ORDERED: bisacodyL 10 MG SUPP PR PRN (15:30)
[2023-10-14] MEDS ORDERED: METOCLOPRAMIDE HCL INJ 5 MG/ML 2 ML VIAL IV PRN (15:30)
[2023-10-14] MEDS ORDERED: traMADol HCL 50 MG TABLET PO PRN (15:30)
[2023-10-14] MEDS ORDERED: NALOXONE HCL 0.4 MG/1 ML VIAL/CARP IV PRN (15:30)
[2023-10-14] MEDS ORDERED: ONDANSETRON INJ 2 MG/ML 2 ML VIAL IV PRN (15:30)
[2023-10-14] MEDS ORDERED: ONDANSETRON INJ 2 MG/ML 2 ML VIAL ONE (15:30)
[2023-10-14 15:50] LABS: Hematocrit (blood only) 34.9 % (42.0-52.0); Hemoglobin 11.5 g/dl (14.0-18.0); Mean Corpuscular Hemoglobin 30.4 pg (25.0-34.0); Mean Corpuscular Volume 92.3 fL (80.0-100.0); Platelet Count 300 K/uL (130-400); RDW Coefficient of Variation 11.9 % (11.5-14.5); RDW Standard Deviation 40.7 fL (36.4-46.3); Red Blood Count 3.78 M/uL (4.70-6.10); White Blood Count 8.02 K/ul (4.8-10.8)
--- NOTE | 2023-10-14 15:57 | Fluoroscopy Report ---
FL hip LT 1V CLINICAL HISTORY: LT ANTERIOR HIP TECHNIQUE: 2 views were obtained with the C-arm in the OR with the above procedure. Total fluoroscopy time was 19.2 seconds. Radiation dose was 3.73 mGy. Comparison: Comparison is made to CT pelvis 05/19/2023 FINDINGS/IMPRESSION: Intraoperative images were obtained of left hip arthroplasty revision. Please correlate with intraoperative fluoroscopy and operative report. ACT 112: Negative or not required by law. Electronically signed by: Jordan Johnston M.D. 10/14/2023 3:56 PM
--- NOTE | 2023-10-14 17:18 | Anesthesiology Progress Note ---
Date of Service October 14, 2023 Anesthesia Post Procedure Vital Signs Vital Signs: Temp Pulse Pulse Resp BP Pulse Ox O2 Del Method 10/14/23 17:05 65 18 91/58 L 100 Nasal Cannula 10/14/23 16:55 56 L 13 92/55 L 100 Nasal Cannula 10/14/23 16:50 57 L 16 99/55 L 99 Nasal Cannula 10/14/23 16:45 74 20 97/55 L 100 Nasal Cannula 10/14/23 16:40 58 L 16 97/53 L 100 Nasal Cannula 10/14/23 16:35 57 L 13 96/52 L 98 Nasal Cannula 10/14/23 16:30 58 L 16 95/50 L 100 Nasal Cannula 10/14/23 16:25 59 L 18 93/49 L 98 Nasal Cannula 10/14/23 16:15 36.3 C L 62 17 93/59 L 100 Room Air 10/14/23 16:10 58 L 12 75/46 L 98 Room Air 10/14/23 16:05 83 17 93/59 L 100 Room Air 10/14/23 15:55 77 12 102/66 100 Oxymask 10/14/23 15:45 36.5 C 67 12 102/57 L 100 Oxymask 10/14/23 07:44 36.6 C 57 L 18 169/83 H 97 Room Air O2 Flow Rate 10/14/23 17:05 2 10/14/23 16:55 2 10/14/23 16:50 2 10/14/23 16:45 2 10/14/23 16:40 2 10/14/23 16:35 2 10/14/23 16:30 2 10/14/23 16:25 2 10/14/23 16:15 10/14/23 16:10 10/14/23 16:05 10/14/23 15:55 14 10/14/23 15:45 14 10/14/23 07:44 Transfer of Care Handoff Completed per policy Notes Mental Status: alert / awake / arousable and participated in evaluation Nausea / Vomiting: adequately controlled Pain: adequately controlled Airway Patency, RR, SpO2: stable & adequate BP & HR: stable & adequate Hydration State: stable & adequate Neuraxial Anesthesia: was administered and sensory block is resolving Anesthetic Complications: no major complications apparent and Pt Satisfied with anesthetic care
--- NOTE | 2023-10-14 17:51 | Operative Report ---
Post Operative Report Pre & Post Diagnosis Operation Date: 10/14/23 10:15 Pre-Op Diagnosis: Left Total Hip Replacement Recurrent Dislocation Post-Op Diagnosis: Left Total Hip Replacement Recurrent Dislocation I identified the patient and participated in the time-out.: Yes Procedure Operation Date: 10/14/23 10:15 Actual Procedures p Left Anterior Approach Total Hip Replacement, Acetabular Revision(Left) - Jonathan Chin MD Surgeon Jonathan Chin MD Day Care Teacher Omkar Pisano PA-C Estimated Blood Loss 300 Findings Consistent with Post-Op Diagnosis The previous acetabular component was extremely retroverted and malpositioned. Specimens Explanted acetabular component synovial and capsular tissue and explanted femoral head Complications None Indications Patient is a 78-year-old man with a remote history of hip replacement surgery performed elsewhere. He had multiple recurrent dislocations after the original surgery in 2006. In 2013 a constrained liner was placed. He continued to dislocate despite the constrained liner. A workup with CT scan showed that he has a retroverted cup and he is admitted for revision of the acetabular component to a more anatomical position. Description of Procedure Following satisfactory spinal anesthesia the patient was supine on the operating room table. The left leg was placed in the traction device in the right leg in the well-leg trevino. Positioning was confirmed with fluoroscopy. The leg was prepared with ChloraPrep and draped sterilely. A surgical timeout was performed. An anterior approach was performed in the interval between the sartorius and tensor muscles. The circumflex femoral vessels were identified and coagulated. A partial anterior capsulectomy was performed to act to expose the previous hip replacement. The findings were as noted above with an extremely retroverted cup. The hip was dislocated through the constrained liner and the femoral head was removed. The constrained liner was removed. It was extremely difficult to see the 1 screw that was holding the cup. It could not be accessed despite removing the liner. The explant system was then used to loosen the cup. Multiple attempts were made and eventually the cup was loosen and removed with minimal bone loss. The screw had remained in the acetabulum. The screw was deformed and was difficult to get up but was eventually removed. The acetabulum was reamed under direct vision. Initially a Alexander [employer] Nephew shell size 62 was impacted in a much improved position of 35 to 40 degrees of abduction and 25 degrees or so of anteversion confirmed with fluoroscopy. However a trial reduction was attempted and it was apparent that there was a significant leg length discrepancy and not enough femoral head length could be made up to safely use a dual mobility liner. Therefore the Alexander & Nephew liner and screws were removed. The wound was irrigated. The bed was freshened up and a Rachel 62 mm trabecular metal acetabular liner was placed and secured with 230 mm screws. The constrained acetabular liner was placed. Initially a +10 Rachel head stainless steel was placed and the hip was reduced. There was extreme difficulty trying to place the rocket locking ring. Multiple attempts and a great deal of time passed and it could not be placed. It was apparent while this was going on that the head actually dissociated from the trunnion and was not fixed. The old head was eventually removed from the liner which because it was constrained was somewhat difficult. The wound was irrigated. A +12 Oxinium Alexander & Nephew head was placed as this gave us a little more length and seem to fit better on the trunnion as the trunnion was a 1214 taper. Ideally it would have been good to have a +16 or +20 had with no such and this made her available. The hip was reduced and felt very stable. The locking ring could not be placed but the hip was much more stable with leg lengths restored. The wound was irrigated with 500 cc of experience irrigation. A Hemovac drain was placed. The tensor fascia was closed with a running suture of 0 V-Loc as was the more deep subcutaneous fat layers. The superficial layers were closed with surgical precious. Dermabond pernio and a negative pressure dressing were applied. The patient was transferred back to his bed in stable condition. Note: Omkar ALBARADO was present and assisted throughout due to the complicated nature of this case. He help with preparation and set up an assistant spa director throughout. He assisted with hemostasis and exposure throughout the procedure. He also closed the fascial subcutaneous and skin layers and applied the postop dressing. I attest to the content of the Intraoperative Record and any orders documented therein. Any exceptions are noted below.
[2023-10-14] MEDS: SODIUM CHLORIDE 0.9% 1,000 ML IV SCH (17:59)
[2023-10-14] MEDS: KETOROLAC TROMETHAMINE 15 MG/ML VIAL IV SCH ×2 (18:37→23:26)
[2023-10-14] MEDS ORDERED: SODIUM CHLORIDE 0.9% 1,000 ML IV ONE (20:21)
[2023-10-14] MEDS: ASCORBIC ACID 500 MG TAB PO SCH (20:43)
[2023-10-14] MEDS: SENNA 8.6 MG TAB PO SCH (20:43)
[2023-10-14] MEDS: DOCUSATE SODIUM 100 MG CAP PO SCH (20:43)
--- NOTE | 2023-10-14 20:57 | Hospitalist Consultation ---
Date of Consultation October 14, 2023 Assessment & Plan (1) Hypotension after procedure: Patient is a 78-year-old male with a past medical history of left bundle branch block, hypertension, and hyperlipidemia who presented to the hospital for revision of artificial left hip due to joint instability. (2) Hip joint instability: (3) Hyperlipidemia: (4) Hypertension: History of Present Illness Reason for Consultation: Patient is a 78-year-old male with a past medical history of left bundle branch block, hypertension, and hyperlipidemia who presented to the hospital for revision of artificial left hip due to joint instability. Patient underwent procedure today and when he had returned from his operation, his blood pressure was reportedly in the 80s over 50s. For this reason, a hospitalist consultation was placed. Patient does have a history of hypertension for which she takes hydrochlorothiazide in the morning and he did take this the morning of his procedure. He currently denies any chest pain, shortness of breath, leg pain, or headache. Reports that he did have some nausea and dizziness prior to my arrival but it seems to have improved now. Dr. Tracy ordered a 1 L bolus of fluid prior to this consultation. Patient was also placed in the Trendelenburg position. Otherwise patient has no other complaints. Requesting Physician: Dr. Tracy Attending Physician: Jonathan Chin MD Allergies Allergy/AdvReac Type Severity Reaction Status Date / Time No Known Allergies Allergy Unknown Verified 10/14/23 07:47 Home Medications Medication Instructions Recorded Confirmed Type atorvastatin 20 mg tablet 20 mg PO QPM 04/06/21 10/14/23 History amoxicillin 500 mg capsule 2,000 mg PO DIRECTED PRN PRIOR 09/02/22 10/14/23 History TO DENTAL PROCEDURES fluticasone propionate 50 2 spray intranasal DAILY PRN 01/22/23 10/14/23 History mcg/actuation nasal Congestion spray,suspension (Flonase Allergy Relief) hydrochlorothiazide 25 mg tablet 25 mg PO QAM 01/22/23 10/14/23 History potassium gluconate 595 mg (99 mg) 595 mg PO DAILY 01/22/23 10/14/23 History tablet trazodone 150 mg tablet 150 mg PO HS 01/22/23 10/14/23 History triamcinolone acetonide 0.1 % 1 applic topical BID PRN flare ups 01/22/23 10/14/23 History lotion [id number]-erconzvo-wuwqzt tablet 1 tab PO DAILY 05/02/23 10/14/23 History naproxen sodium 220 mg tablet 220 mg PO PM PRN Pain 09/06/23 10/14/23 History cholecalciferol (vitamin D3) 125 10,000 unit PO DAILY 10/14/23 10/14/23 History mcg (5,000 unit) tablet (Vitamin D3) Patient History Medical History (Updated 10/14/23 @ 21:00 by Cas Cronin DO) Hypertension UTI (urinary tract infection) [facility] admission 01/2023, Acute metabolic encephalopathy 2/2 untreated UTI in setting of ongoing sinus infection (Abx treatment inpatient), elevated troponins (cardio consult inpatient, EKG/Echo unremarkable, no additional cardiac workup recommended, "minimal elevation in the cardiac troponins which is most likely a type II elevation") > no issues since LBBB (left bundle branch block) ECG 01/22/23 with Left ventricular hypertrophy with QRS widening and repolarization abnormality, Echo 01/23/23 BPH (benign prostatic hyperplasia) Hx of steroid therapy Recent hx of steroid injections thumb, knees, and back Hyperlipidemia History of COVID-2020- fever, sore throat > resolved Hx of dislocation of hip x2, Left Surgical History 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) History of tooth extraction History of cataract surgery Hx of colonoscopy History of bunionectomy x4 History of hip surgery Left, had to be "locked into place" after 2 hip dislocations H/O nasal septoplasty S/P total hip arthroplasty R/L Family History Father Cancer Social History Smoking Status: Former smoker Smoking End Date: Quit 40+ years ago; Second Hand Exposure: No; Do You Dip or Chew Tobacco: No; Tobacco Cessation Education Requested by Patient: No Hx Alcohol Use: No Hx Substance Use: No Preferred Language: Malay Communication Ability: Effective Customer Service Cashier Required: No Beliefs That Will Affect Care: None Current Living Situation: Spouse Other Information That Helps Us Care for You: No Feels Safe at Home: Yes Safety Concerns: Feels Safe At This Time Assistive Devices: Cane, Denture - Upper, Glasses and Hearing Aid - Bilateral Review of Systems Review of Systems: All systems reviewed & are unremarkable except as noted in HPI & below Physical Exam Constitutional: WD/WN, vitals as above In Trendelenburg position Eyes: + anicteric sclerae Neck: trachea midline, no thyromegaly Respiratory: normal respiratory effort, lungs clear to auscultation Cardiovascular: RRR, no murmur, no edema Gastrointestinal (Abdomen): normal bowel sounds, soft, nontender, no hepatosplenomegaly Musculoskeletal: Head/Neck/Chest: normocephalic and head atraumatic There is bandaging and covers on the lateral left hip with ice pack overlying incision. Skin: no rashes, warm and dry Neurologic: moves all extremities Psychiatric: A+Ox3, euthymic affect Results & Data Results & Data Vital Signs (Past 12 Hours) Vital Signs Temp Pulse Pulse Resp BP Pulse Ox O2 Del Method 10/14/23 19:56 36.3 C L 64 16 87/50 L 98 Room Air 10/14/23 18:50 36.4 C L 81 16 91/55 L 98 Room Air 10/14/23 18:22 36.4 C L 86 16 93/54 L 97 Room Air 10/14/23 17:54 36.4 C L 72 16 95/54 L 97 Room Air 10/14/23 17:30 63 18 97/53 L 96 Room Air 10/14/23 17:15 36.3 C L 60 15 101/55 L 95 Room Air 10/14/23 17:05 65 18 91/58 L 100 Nasal Cannula 10/14/23 16:55 56 L 13 92/55 L 100 Nasal Cannula 10/14/23 16:50 57 L 16 99/55 L 99 Nasal Cannula 10/14/23 16:45 74 20 97/55 L 100 Nasal Cannula 10/14/23 16:40 58 L 16 97/53 L 100 Nasal Cannula 10/14/23 16:35 57 L 13 96/52 L 98 Nasal Cannula 10/14/23 16:30 58 L 16 95/50 L 100 Nasal Cannula 10/14/23 16:25 59 L 18 93/49 L 98 Nasal Cannula 10/14/23 16:15 36.3 C L 62 17 93/59 L 100 Room Air 10/14/23 16:10 58 L 12 75/46 L 98 Room Air 10/14/23 16:05 83 17 93/59 L 100 Room Air 10/14/23 15:55 77 12 102/66 100 Oxymask 10/14/23 15:45 36.5 C 67 12 102/57 L 100 Oxymask O2 Flow Rate 10/14/23 19:56 10/14/23 18:50 10/14/23 18:22 10/14/23 17:54 10/14/23 17:30 10/14/23 17:15 10/14/23 17:05 2 10/14/23 16:55 2 10/14/23 16:50 2 10/14/23 16:45 2 10/14/23 16:40 2 10/14/23 16:35 2 10/14/23 16:30 2 10/14/23 16:25 2 10/14/23 16:15 10/14/23 16:10 10/14/23 16:05 10/14/23 15:55 14 10/14/23 15:45 14
[2023-10-14] MEDS: ACETAMINOPHEN 500 MG TAB PO SCH (21:44)
[2023-10-14] MEDS: traZODone HCL 50 MG TAB PO SCH (21:44)
[2023-10-14] MEDS: ceFAZolin 2000MG 2,000 MG/15 ML SYR IV SCH (21:44)
[2023-10-14 21:52] LABS: BUN Creatinine Ratio 22.9 (10-20); Calcium 7.5 mg/dl (8.6-10.3); Creatinine Clr Calc Pharmacy 98.5 ml/min; Est GFR (African American) 106.2 ml/min; Est GFR (Non-African American) 91.7 ml/min; Potassium 3.9 mmol/L (3.5-5.1)
[2023-10-14] MEDS ORDERED: SODIUM CHLORIDE 0.9% 500 ML IV SCH (22:00)
[2023-10-14 22:40] LABS: Hematocrit (blood only) 23.8 % (42.0-52.0); Hemoglobin 8.1 g/dl (14.0-18.0); Mean Corpuscular Volume 91.2 fL (80.0-100.0); Platelet Count 197 K/uL (130-400); RDW Coefficient of Variation 11.9 % (11.5-14.5); RDW Standard Deviation 39.8 fL (36.4-46.3); Red Blood Count 2.61 M/uL (4.70-6.10); White Blood Count 12.23 K/ul (4.8-10.8)
--- NOTE | 2023-10-14 22:57 | History & Physical Report ---
Date of Service October 14, 2023 Assessment & Plan (1) Hypotension after procedure: Plan: 78-year-old male with past med significant for hyperlipidemia, hypertrophy of both inferior nasal turbinates, hypertension, BPH, sacroiliitis, s/p nasal surgery, history of COVID, he is s/p left total hip replacement recurrent dislocation today and Postprocedure patient became hypotensive Hypotension after procedure Received fluid bolus Continue maintenance fluids Close monitor Hemoglobin came at 8.1 If not improving will transfuse 1 unit of PRBC Anemia Possible acute blood loss anemia Postprocedure left thigh/hip ultrasound hematoma vs seroma Follow labs closely Hyperlipidemia On statin Hypertension Hold hydrochlorothiazide while patient is hypotensive will monitor. DVT prophylaxis and disposition as per orthopedics Admission and Anticipated Discharge Date Admission Date: October 14, 2023 History of Present Illness Chief Complaint: S/p left total hip replacement for recurrent dislocation. Postop hypotension Primary Care Provider: Anthony Treviño DO 78-year-old male with past med history significant for hyperlipidemia, hypertrophy of both inferior nasal turbinates, hypertension, BPH, sacroiliitis, s/p nasal surgery, history of COVID, he is s/p left total hip replacement recurrent dislocation today and Postprocedure patient became hypotensive. Currently patient is in Trendelenburg position. Received IV fluid bolus. Denies any headache. No sweating. No chest pain or shortness of breath. No nausea. No feeling hot or cold. Has chronic cough. Vision is usually not great. No abdominal pain. Denies any complaints. Past medical history. As mentioned above Past surgical history. Right bunion surgery. Colonoscopy with biopsy. Dental surgery. Bilateral knee arthroscopy. Left removal of hip prosthesis. Bilateral removal of turbinate bones. Right cataract. Inguinal hernia repair. Repair of nasal septum. Left total hip replacement prosthesis. Right total hip replacement process. Vasectomy. Social history. . Quit smoking 1967. Smoked half pack a day for 1 year. Alcohol occasional wine. No drug use. Family history. Father had cancer. Mother had CHF. Allergies Allergy/AdvReac Type Severity Reaction Status Date / Time No Known Allergies Allergy Unknown Verified 10/14/23 07:47 Home Medications Medication Instructions Recorded Confirmed Type atorvastatin 20 mg tablet 20 mg PO QPM 04/06/21 10/14/23 History amoxicillin 500 mg capsule 2,000 mg PO DIRECTED PRN PRIOR 09/02/22 10/14/23 History TO DENTAL PROCEDURES fluticasone propionate 50 2 spray intranasal DAILY PRN 01/22/23 10/14/23 History mcg/actuation nasal Congestion spray,suspension (Flonase Allergy Relief) hydrochlorothiazide 25 mg tablet 25 mg PO QAM 01/22/23 10/14/23 History potassium gluconate 595 mg (99 mg) 595 mg PO DAILY 01/22/23 10/14/23 History tablet trazodone 150 mg tablet 150 mg PO HS 01/22/23 10/14/23 History triamcinolone acetonide 0.1 % 1 applic topical BID PRN flare ups 01/22/23 10/14/23 History lotion dsrxxnmfxyua-serwutwm-rxvpiu tablet 1 tab PO DAILY 05/02/23 10/14/23 History naproxen sodium 220 mg tablet 220 mg PO PM PRN Pain 09/06/23 10/14/23 History cholecalciferol (vitamin D3) 125 10,000 unit PO DAILY 10/14/23 10/14/23 History mcg (5,000 unit) tablet (Vitamin D3) Past Med/Surg History Medical History (Updated 10/14/23 @ 21:00 by Cas Cronin DO) Hypertension UTI (urinary tract infection) [facility] admission 01/2023, Acute metabolic encephalopathy 2/2 untreated UTI in setting of ongoing sinus infection (Abx treatment inpatient), elevated troponins (cardio consult inpatient, EKG/Echo unremarkable, no additional cardiac workup recommended, "minimal elevation in the cardiac troponins which is most likely a type II elevation") > no issues since LBBB (left bundle branch block) ECG 01/22/23 with Left ventricular hypertrophy with QRS widening and repolarization abnormality, Echo 01/23/23 BPH (benign prostatic hyperplasia) Hx of steroid therapy Recent hx of steroid injections thumb, knees, and back Hyperlipidemia History of COVID-19 2020- fever, sore throat > resolved Hx of dislocation of hip x2, Left Surgical History 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) History of tooth extraction History of cataract surgery Hx of colonoscopy History of bunionectomy x4 History of hip surgery Left, had to be "locked into place" after 2 hip dislocations H/O nasal septoplasty S/P total hip arthroplasty R/L Family History Father Cancer Social History Smoking Status: Former smoker Smoking End Date: Quit 40+ years ago; Second Hand Exposure: No; Do You Dip or Chew Tobacco: No; Tobacco Cessation Education Requested by Patient: No Hx Alcohol Use: No Hx Substance Use: No Preferred Language: Croatian Communication Ability: Effective Retina Subspecialist Required: No Beliefs That Will Affect Care: None Current Living Situation: Spouse Other Information That Helps Us Care for You: No Feels Safe at Home: Yes Safety Concerns: Feels Safe At This Time Assistive Devices: Cane, Denture - Upper, Glasses and Hearing Aid - Bilateral Review of Systems Review of Systems: All systems reviewed & are unremarkable except as noted in HPI & below Physical Exam Physical Exam: General- Not in distress Head- atraumatic Eyes- PERRL. ENT- oropharynx clear Neck- supple, no JVD. Lungs- clear to auscultation, no wheezing or crackles. Heart- regular rhythm; no murmur, no gallop. Abdomen- normal bowel sounds, soft, nontender, no distension. Extremities- no pretibial edema, no erythema seen. Neuro- alert, oriented x 3; EOMI; no facial palsy; no dysarthria; Obeys commands, Moves extremities. Skin- warm & dry Results & Data Results & Data Vital Signs (Past 12 Hours) Vital Signs Temp Pulse Pulse Resp BP Pulse Ox O2 Del Method 10/14/23 21:43 61 89/48 L 10/14/23 20:50 36.3 C L 61 16 93/50 L 98 Room Air 10/14/23 19:56 36.3 C L 64 16 87/50 L 98 Room Air 10/14/23 18:50 36.4 C L 81 16 91/55 L 98 Room Air 10/14/23 18:22 36.4 C L 86 16 93/54 L 97 Room Air 10/14/23 17:54 36.4 C L 72 16 95/54 L 97 Room Air 10/14/23 17:30 63 18 97/53 L 96 Room Air 10/14/23 17:15 36.3 C L 60 15 101/55 L 95 Room Air 10/14/23 17:05 65 18 91/58 L 100 Nasal Cannula 10/14/23 16:55 56 L 13 92/55 L 100 Nasal Cannula 10/14/23 16:50 57 L 16 99/55 L 99 Nasal Cannula 10/14/23 16:45 74 20 97/55 L 100 Nasal Cannula 10/14/23 16:40 58 L 16 97/53 L 100 Nasal Cannula 10/14/23 16:35 57 L 13 96/52 L 98 Nasal Cannula 10/14/23 16:30 58 L 16 95/50 L 100 Nasal Cannula 10/14/23 16:25 59 L 18 93/49 L 98 Nasal Cannula 10/14/23 16:15 36.3 C L 62 17 93/59 L 100 Room Air 10/14/23 16:10 58 L 12 75/46 L 98 Room Air 10/14/23 16:05 83 17 93/59 L 100 Room Air 10/14/23 15:55 77 12 102/66 100 Oxymask 10/14/23 15:45 36.5 C 67 12 102/57 L 100 Oxymask O2 Flow Rate 10/14/23 21:43 10/14/23 20:50 10/14/23 19:56 10/14/23 18:50 10/14/23 18:22 10/14/23 17:54 10/14/23 17:30 10/14/23 17:15 10/14/23 17:05 2 10/14/23 16:55 2 10/14/23 16:50 2 10/14/23 16:45 2 10/14/23 16:40 2 10/14/23 16:35 2 10/14/23 16:30 2 10/14/23 16:25 2 10/14/23 16:15 10/14/23 16:10 10/14/23 16:05 10/14/23 15:55 14 10/14/23 15:45 14 Diagnostic Findings Laboratory Results WBC 12.23 K/ul (4.8-10.8) H 10/14/23 21:10 RBC 2.61 M/uL (4.70-6.10) L 10/14/23 21:10 Hgb 8.1 g/dl (14.0-18.0) L D 10/14/23 21:10 Hct 23.8 % (42.0-52.0) L 10/14/23 21:10 MCV 91.2 fL (80.0-100.0) 10/14/23 21:10 MCH 31.0 pg (25.0-34.0) 10/14/23 21:10 MCHC 34.0 g/dL (32.0-36.0) 10/14/23 21:10 RDW Std Deviation 39.8 fL (36.4-46.3) 10/14/23 21:10 RDW Coeff of Thomas 11.9 % (11.5-14.5) 10/14/23 21:10 Plt Count 197 K/uL (130-400) 10/14/23 21:10 MPV 9.0 fL (9.4-12.4) L 10/14/23 21:10 Sodium 135 mmol/L (136-145) L 10/14/23 21:10 Potassium 3.9 mmol/L (3.5-5.1) 10/14/23 21:10 Chloride 105 mmol/L (98-107) 10/14/23 21:10 Carbon Dioxide 24 mmol/L (21-32) 10/14/23 21:10 Anion Gap 6 (3-11) 10/14/23 21:10 BUN 16 mg/dl (6-23) 10/14/23 21:10 Creatinine 0.70 mg/dl (0.6-1.4) 10/14/23 21:10 Est Cr Clr Drug Dosing 98.5 ml/min 10/14/23 21:10 Est GFR ( Amer) 106.2 ml/min 10/14/23 21:10 Est GFR (Non-Af Amer) 91.7 ml/min 10/14/23 21:10 BUN/Creatinine Ratio 22.9 (10-20) H 10/14/23 21:10 Glucose 179 mg/dl (70-99(Fasting)) H 10/14/23 21:10 Calcium 7.5 mg/dl (8.6-10.3) L 10/14/23 21:10 Crossmatch See Detail 10/14/23 07:32 Impressions Hip X-Ray 10/14/23 10:15 FL hip LT 1V CLINICAL HISTORY: LT ANTERIOR HIP TECHNIQUE: 2 views were obtained with the C-arm in the OR with the above procedure. Total fluoroscopy time was 19.2 seconds. Radiation dose was 3.73 mGy. Comparison: Comparison is made to CT pelvis 05/19/2023 FINDINGS/IMPRESSION: Intraoperative images were obtained of left hip arthroplasty revision. Please correlate with intraoperative fluoroscopy and operative report. ACT 112: Negative or not required by law. Electronically signed by: Jordan Johnston M.D. 10/14/2023 3:56 PM Code Status & VTE Plan VTE Prophylaxis Plan VTE Prophylaxis will be ordered: Yes
--- NOTE | 2023-10-15 03:03 | Ultrasound Report ---
Exam(s): US EXTREMITY EXAM: US Left Lower Extremity Non-Vascular, Complete CLINICAL HISTORY: Reason for exam: left thigh/hip. hematoma?. TECHNIQUE: Real-time ultrasound scan of the left lower extremity with image documentation. COMPARISON: None. FINDINGS: Soft tissues: There is nonspecific soft tissue edema seen along the lateral aspect of the left hip/upper thigh region. There is a fluid collection at the level of the left groin which could represent seroma or resolving hematoma. Infectious process is less likely but not entirely excluded in the absence of surrounding hyperemia. No foreign body. IMPRESSION: 1. Diffuse nonspecific edema as described. 2. Fluid collection at the level of the left groin suggestive of seroma versus resolving hematoma less likely infectious process not entirely excluded. Ultrasound in 2 weeks recommended to evaluate resolution. Otherwise, further characterization with CT or MRI of the region of interest may help. Electronically signed by: Kala Valladares MD 10/15/23 03:03 AM
[2023-10-15] MEDS: SODIUM CHLORIDE 0.9% 1,000 ML IV SCH (05:14)
[2023-10-15] MEDS: ceFAZolin 2000MG 2,000 MG/15 ML SYR IV SCH (05:14)
[2023-10-15] MEDS: KETOROLAC TROMETHAMINE 15 MG/ML VIAL IV SCH ×4 (05:14→23:29)
[2023-10-15] MEDS: ACETAMINOPHEN 500 MG TAB PO SCH ×3 (05:15→22:17)
[2023-10-15 06:42] LABS: Basophils # (auto) 0.01 K/uL (0.00-0.20); Basophils % (auto) 0.1 %; Hematocrit (blood only) 21.6 % (42.0-52.0); Hemoglobin 7.4 g/dl (14.0-18.0); Immature Granulocytes # (auto) 0.06 K/uL (0.01-0.20); Immature Granulocytes % (auto) 0.4 %; Lymphocytes # (auto) 0.59 K/uL (1.20-3.40); Lymphocytes % (auto) 4.4 %; Mean Corpuscular Hemoglobin 30.7 pg (25.0-34.0); Mean Corpuscular Hgb Conc 34.3 g/dL (32.0-36.0); Mean Corpuscular Volume 89.6 fL (80.0-100.0); Mean Platelet Volume 9.2 fL (9.4-12.4); Monocytes % (auto) 10.5 %; Neutrophils # (auto) 11.32 K/uL (1.40-6.50); Neutrophils % (auto) 84.6 %; Platelet Count 197 K/uL (130-400); RDW Coefficient of Variation 11.9 % (11.5-14.5); RDW Standard Deviation 38.7 fL (36.4-46.3); Red Blood Count 2.41 M/uL (4.70-6.10); White Blood Count 13.38 K/ul (4.8-10.8)
[2023-10-15 06:53] LABS: BUN Creatinine Ratio 24.3 (10-20); Calcium 7.6 mg/dl (8.6-10.3); Creatinine Clr Calc Pharmacy 93.2 ml/min; Est GFR (African American) 103.8 ml/min; Est GFR (Non-African American) 89.6 ml/min; Magnesium 1.5 mg/dl (1.7-2.4); Potassium 4.3 mmol/L (3.5-5.1)
[2023-10-15 06:59] LABS: Troponin I High Sensitivity 47.3 pg/ml (0-20)
[2023-10-15 07:04] LABS: Polychromasia 1+
[2023-10-15] MEDS: DOCUSATE SODIUM 100 MG CAP PO SCH ×2 (07:37→19:50)
[2023-10-15] MEDS: ASCORBIC ACID 500 MG TAB PO SCH ×2 (07:37→16:28)
[2023-10-15] MEDS: MULTIVITAMIN TAB PO SCH (07:37)
[2023-10-15] MEDS: MAGNESIUM SULFATE / D5W 1 GM/100 ML BAG IV SCH ×2 (09:04→11:05)
[2023-10-15] MEDS ORDERED: SODIUM CHLORIDE 0.9% 250 ML IV PRN (09:44)
--- NOTE | 2023-10-15 09:53 | Orthopedic Progress Note ---
Date of Service October 15, 2023 Assessment & Plan (1) Hip joint instability: Plan: today we reviewed the patient's situation and reviewed hip precautions. He is moderately anemic but seems to be compensated with a pulse of 66. He will be allowed to get up and be assessed by therapy. As long as there is no orthostasis patient is cleared for discharge to home. We did review hip precautions and medication protocol with him. He will be followed at home by [facility] and will return to the office in 2 weeks time Plan Plan: Exploration and revision left hip to more acceptable Position most likely with dual mobility liner overnight stay. Admission and Anticipated Discharge Date Admission Date: October 14, 2023 Subjective postoperative day #1 complicated revision for chronic instability left hip Patient offers no complaints this morning. His actual biggest problem is that he has carpal tunnel on the right side that is giving him some problems. He denies hip pain or discomfort also denies chest pain or dizziness. Physical Exam Physical Exam: Patient is examined in in bed. His dressing is clean dry and intact. He is neurologically and vascularly intact. His hip is located. His leg lengths are equal. Results & Data Vital Signs (Past 12 Hours) Vital Signs Temp Pulse Pulse Resp BP BP Pulse Ox 10/15/23 09:48 119/61 10/15/23 09:48 103/47 L 10/15/23 09:46 125/67 10/15/23 09:45 96/57 L 10/15/23 07:31 36.4 C L 66 18 107/53 L 98 10/15/23 03:10 36.5 C 66 18 96/47 L 100 10/15/23 01:08 94/49 L 10/14/23 23:08 36.3 C L 68 18 90/54 L 96 O2 Del Method 10/15/23 09:48 10/15/23 09:48 10/15/23 09:46 10/15/23 09:45 10/15/23 07:31 Room Air 10/15/23 03:10 Room Air 10/15/23 01:08 10/14/23 23:08 Room Air Laboratory Results Hemoglobin 7.4
--- NOTE | 2023-10-15 15:38 | Hospitalist Progress Note ---
Date of Service October 15, 2023 Assessment & Plan (1) Hypotension after procedure: Plan: 78-year-old male with past med significant for hyperlipidemia, hypertrophy of both inferior nasal turbinates, hypertension, BPH, sacroiliitis, s/p nasal surgery, history of COVID, he is s/p left total hip replacement recurrent dislocation today and Postprocedure patient became hypotensive Hypotension In setting of POD#1 s/p complicated revision for chronic instability left hip by Dr. Chin Received fluid bolus but still remained hypotensive and more symptomatic with standing Initial HS slightly elevated at 40 in setting of demand ischemia, no chest pain Post-op hgb 8.1 -> 7.4 Given hgb <8 and hypotension, transfusing 1u prbcs Per ortho for pain control, wound care, anticoagulation and activities Repeat CBC in AM Anemia Post-op blood loss anemia Left thigh/hip ultrasound hematoma vs seroma - recommend repeat ultrasound in2 weeks to eval for resolution, ortho follow up Hyperlipidemia On statin Hypertension Hold hydrochlorothiazide while patient is hypotensive DVT prophylaxis and disposition as per orthopedics Admission and Anticipated Discharge Date Admission Date: October 14, 2023 Supervising Physician Co-Signing Physician Notes Pt seen and examined by myself, Christine Parks MD on the day of service. Care was coordinated with Daniela Greco PA-C. 78yoM s/p Left total hip replacement with hypotension in the setting of acute blood loss anemia. Pt denied any dizziness, chest pain, SOB, palpitations. RRR, breath sounds clear bilaterally. Hgb dropped from 11.5 to 7.4 today. Transfuse 1U pRBCs, repeat H/H for further monitoring. Otherwise as above. Subjective Patient seen and examined in 316 on postoperative day #1 in follow-up for complicated revision for chronic instability left hip. The patient feeling comfortable in bed with some episodic lightheadedness overnight that is since resolved. Has not yet stood up with therapy. Having carpal tunnel pain of R wrist. No F/C, lightheadedness, headache, CP, palpitations, SOB, N/V, abdominal pain, dysuria, no post-op flatus yet. Review of Systems Review of Systems: At least ten systems reviewed and negative except as noted in the HPI. Physical Exam Physical Exam: Gen: WD/WN, NAD, sitting in bed, A&Ox3 HEENT: Normocephalic, atraumatic, conjunctivae moist, sclerae anicteric, mucous membranes moist Lung: Clear to Auscultation bilaterally, no wheezes/rales/rhonchi Heart: Regular rate, regular rhythm, no murmurs, rubs, or gallops Abdomen: Soft, NT, ND +BS x 4 Extremities: L hip surgical dressing c/d/i Skin: Warm, no rash Results & Data Results & Data Vital Signs (Past 12 Hours) Vital Signs Temp Pulse Pulse Resp BP BP Pulse Ox 10/15/23 15:15 36.7 C 65 16 119/49 L 99 10/15/23 14:20 36.8 C 65 16 110/54 L 100 10/15/23 14:15 36.8 C 65 16 110/54 L 100 10/15/23 13:30 36.3 C L 65 18 113/58 L 99 10/15/23 13:29 36.8 C 61 16 112/60 100 10/15/23 13:16 36.8 C 64 16 113/62 10/15/23 09:48 119/61 10/15/23 09:48 103/47 L 10/15/23 09:46 125/67 10/15/23 09:45 96/57 L 10/15/23 07:31 36.4 C L 66 18 107/53 L 98 O2 Del Method 10/15/23 15:15 10/15/23 14:20 Room Air 10/15/23 14:15 10/15/23 13:30 10/15/23 13:29 10/15/23 13:16 10/15/23 09:48 10/15/23 09:48 10/15/23 09:46 10/15/23 09:45 10/15/23 07:31 Room Air Laboratory Results Short CBC 10/14/23 10/14/23 10/15/23 Range/Units 15:10 21:10 05:57 WBC 8.02 12.23 H 13.38 H (4.8-10.8) K/ul Hgb 11.5 L 8.1 L D 7.4 L (14.0-18.0) g/dl Hct 34.9 L 23.8 L 21.6 L (42.0-52.0) % Plt Count 300 197 197 (130-400) K/uL BMP 10/14/23 10/15/23 21:10 05:57 Sodium 135 L 135 L Potassium 3.9 4.3 Chloride 105 106 Carbon Dioxide 24 24 BUN 16 18 Creatinine 0.70 0.74 Glucose 179 H 128 H Calcium 7.5 L 7.6 L Diagnostic Findings Hip X-Ray 10/14/23 10:15 FL hip LT 1V CLINICAL HISTORY: LT ANTERIOR HIP TECHNIQUE: 2 views were obtained with the C-arm in the OR with the above procedure. Total fluoroscopy time was 19.2 seconds. Radiation dose was 3.73 mGy. Comparison: Comparison is made to CT pelvis 05/19/2023 FINDINGS/IMPRESSION: Intraoperative images were obtained of left hip arthroplasty revision. Please correlate with intraoperative fluoroscopy and operative report. ACT 112: Negative or not required by law. Electronically signed by: Jordan Johnston M.D. 10/14/2023 3:56 PM Vascular Ultrasound 10/15/23 23:30 Exam(s): US EXTREMITY EXAM: US Left Lower Extremity Non-Vascular, Complete CLINICAL HISTORY: Reason for exam: left thigh/hip. hematoma?. TECHNIQUE: Real-time ultrasound scan of the left lower extremity with image documentation. COMPARISON: None. FINDINGS: Soft tissues: There is nonspecific soft tissue edema seen along the lateral aspect of the left hip/upper thigh region. There is a fluid collection at the level of the left groin which could represent seroma or resolving hematoma. Infectious process is less likely but not entirely excluded in the absence of surrounding hyperemia. No foreign body. IMPRESSION: 1. Diffuse nonspecific edema as described. 2. Fluid collection at the level of the left groin suggestive of seroma versus resolving hematoma less likely infectious process not entirely excluded. Ultrasound in 2 weeks recommended to evaluate resolution. Otherwise, further characterization with CT or MRI of the region of interest may help. Electronically signed by: Kala Valladares MD 10/15/23 03:03 AM
[2023-10-15] MEDS: traZODone HCL 50 MG TAB PO SCH (19:49)
[2023-10-15] MEDS: SENNA 8.6 MG TAB PO SCH (19:50)
[2023-10-16] MEDS: ACETAMINOPHEN 500 MG TAB PO SCH (05:15)
[2023-10-16] MEDS: KETOROLAC TROMETHAMINE 15 MG/ML VIAL IV SCH (05:15)
--- NOTE | 2023-10-16 06:26 | Electrocardiogram Report ---
Test Reason : Blood Pressure : / mmHG Vent. Rate : 059 BPM Atrial Rate : 059 BPM P-R Int : 204 ms QRS Dur : 124 ms QT Int : 480 ms P-R-T Axes : 069 -34 -17 degrees QTc Int : 475 ms Sinus bradycardia Left axis deviation Non-specific intra-ventricular conduction delay Nonspecific ST and T wave abnormality Abnormal ECG When compared with ECG of 02-MAY-2023 13:48, Minimal criteria for Septal infarct are no longer Present Nonspecific T wave abnormality now evident in Inferior leads T wave inversion more evident in Lateral leads Confirmed by Ricky Barney ([id number]) on 10/16/2023 6:25:53 AM Referred By: Jonathan Chin Confirmed By:Ricky Barney
[2023-10-16 06:54] LABS: Hematocrit (blood only) 21.8 % (42.0-52.0); Hemoglobin 7.4 g/dl (14.0-18.0); Mean Corpuscular Hgb Conc 33.9 g/dL (32.0-36.0); Mean Corpuscular Volume 91.2 fL (80.0-100.0); Mean Platelet Volume 8.9 fL (9.4-12.4); Platelet Count 171 K/uL (130-400); RDW Coefficient of Variation 12.7 % (11.5-14.5); RDW Standard Deviation 41.7 fL (36.4-46.3); Red Blood Count 2.39 M/uL (4.70-6.10); White Blood Count 7.94 K/ul (4.8-10.8)
[2023-10-16 07:14] LABS: BUN Creatinine Ratio 28.9 (10-20); Calcium 8.1 mg/dl (8.6-10.3); Creatinine Clr Calc Pharmacy 90.8 ml/min; Est GFR (African American) 102.7 ml/min; Est GFR (Non-African American) 88.6 ml/min; Potassium 4.1 mmol/L (3.5-5.1)
[2023-10-16] MEDS: MULTIVITAMIN TAB PO SCH (08:07)
[2023-10-16] MEDS: ASCORBIC ACID 500 MG TAB PO SCH (08:07)
[2023-10-16] MEDS: DOCUSATE SODIUM 100 MG CAP PO SCH (08:07)
--- NOTE | 2023-10-16 09:36 | Orthopedic Progress Note ---
Date of Service October 16, 2023 Assessment & Plan (1) Hip joint instability: Plan: patient feels well. He is cleared for discharge. We did review his labs I do not see a major bump in his hemoglobin but he feels much better. We did review hip hip precautions and wound care as well as medication protocol. He is discharged to home where he will be followed by home health. (2) Hypotension after procedure: Admission and Anticipated Discharge Date Admission Date: October 14, 2023 Subjective Chief complaint: Postoperative day #2 status post complicated hip revision Patient is seen at the bedside. He has no complaints today. His hip feels good and he feels like he is ready for discharge. Physical Exam Physical Exam: Patient is supine in the bed. His teddy dressing is clean with 1 small spot. His thigh and calf are soft and nontender his hip is located. He is neurologically and vascularly intact Results & Data Vital Signs (Past 12 Hours) Vital Signs Temp Pulse Resp BP Pulse Ox O2 Del Method 10/16/23 07:20 36.6 C 64 16 125/62 98 Room Air
[2023-10-16] MEDS ORDERED: CeleBREX 200 MG CAP PO SCH (21:00)
--- OUTSIDE RECORDS SUMMARY | 2023-10-28 11:12 | External Medical Summary | Summary of Care ---
Author Name Unknown Organization [facility] Address [address] [facility] [place] [address] Phone [phone] Care Team Providers Care Production Planner Scheduler Name Role Phone Anthony Treviño DO Primary Care Provider [phone] Reason for Visit * Reason Onset Date Comments Hospital Follow-Up 10/19/2023 NATHANAEL Encounter Details Date Type Department Care Team (Late st Contact Info) Description 10/19/2023 Telephone Family Practice [facility] [place] [address] [facility] [place] [id number] Anthony Treviño DO [address] [facility] [place] [address] Hospital Follow-Up (NATHANAEL) Allergies No known active allergiesdocumented as of this encounter (statuses as of 10/19/2023) Medications Medication Sig Dispensed Refills Start Date [...] TABLET NIGHTLY 90 Tablet 3 05/11/2023 Active hydroCHLOROthiazide 25 MG Oral Tablet (Hydrodiuril) TAKE 1 TABLET DAILY 90 Tablet 2 08/11/2023 Active documented as of this encounter (statuses as of 10/19/2023) Active Problems Problem Noted Date Diagnosed Date [...] as of this encounter (statuses as of 10/19/2023) Resolved Problems Problem Noted Date Diagnosed Date Resolved Date History of epistaxis 01/22/2020 020 Essential hypertension with goal blood pressure less than 130/80 06/04/2016 08/11/2016 Epistaxis, recurrent 06/04/2016 020 Recurrent dislocation of hip joint prosthesis 02/02/20 15 08/10/2017 Overview: Left MUNDO 2006, two episodes of posterior dislocation 2015 Dislocation of hip joint prosthesis 12/20/2014 08/06/2015 Overview: LEFT twice 12/20/2014, 01/30/2015 HTN, goal below 130/80 08/31/201106/04 Epistaxis 03/10/2010 04/12/2011 Dyslipidemia, goal to be determined 04/04/2009 08/31/2011 Benign neoplasm of colon 03/26/200803/2019 Overview: 05/14/2014: 5 mm transverse colon adenoma, repeat 3 years 04/04/2011: 3 small adenomas removed, repeat in 201303/26/2008: adenomatous/repeat colonoscopy in 3 yrs documented as of this encounter (statuses as of 10/19/2023) Immunizations Name Administration Dates Next Due COVID-19 mRNA, LNP-s, No Pre serve, 2-Dose Series (Delphix) 08/29/2021,01/11/2021,12/21/2020,11/25 Pneumococcal Conjugate Vacc, 13 Valent (Prevnar) 04/04/2015 Pneumococcal Polysaccharide PPV23 (Pneumovax) 08/11/2016,03/28/2008,10/25/2007 Seasonal Influenza Virus Vac cine, Unspecified Formulation 08/13/2018 Seasonal Influenza, PF, 6 M & above, IM , (FluLaval or Fluzone) 08/19/2018,08/09/2017 Seasonal Influenza, Quadriva lent Hd (Fluzone Hd) 07/10/2023,07/06/2022 Seasonal Influenza, Quadriva lent, No Preserve, IM [...] encounter Miscellaneous Notes * Telephone Encounter - Teresita Rosales RN - 10/19/2023 2:21 PM EST Transitions of Care Note Reason for Referral:Recent Admission Phone visit for follow up: NATHANAEL Admitted to: [facility], Date: 10/14/23 Discharged to: Home, Date: 10/16/23 Diagnosis driving hospitalization: Left total hip replacement No NATHANAEL call indicated, patient admitted for planned surgery and will follow up with ortho. No PCP follow up indicated at this time. documented in this encounter Plan of Treatment Upcoming Encounters Date Type Department Care Team (Late st Contact Info) Description 10/29/2023 9:30 AM EST Office Visit Otolaryngology [facility] [address] [place] [address] [place], [address] [place] [address] 11/24/2023 10:00 AM EST Office Visit Family Practice [facility] [address] [facility] [place] [address] Anthony Treviño DO [address] [facility] [place] [address] Scheduled Procedures Name Priority Associated Diagnoses Date/Ti [...] Documents on File Type Date Recorded Patient Printing Film Stripper Expl anation Advance Directives and Livin g Will 12/07/2017 LIVING WILL Power of Door Repairer Bus 12/07/2017 POWER OF A TTORNEY Care Teams Production Planner Scheduler Relationship Specialty Start Date End Date Anthony Treviño DO [address] [place] [address] PCP - General Family Medicine 05/22/17 documented as of this encounter
== END 2023-10-16 11:53 | disposition home or self-care (01) | DRG 467 ==
LOC: 3E 06:59 → ASU 06:59 → OBSVTOIN 15:30